=== PATIENT | female | born 1950 | race Caucasian/White ===

== ENCOUNTER → 2018-01-12 | Outpatient (CLI) | payer MEDICARE, OTHER ==
--- NOTE | 2018-01-12 21:55 | MR ---
EXAMINATION TYPE: MR knee RT wo con DATE OF EXAM: 01/12/2018 COMPARISON: NONE HISTORY: 67-year-old female pain on movement, tenderness on palpation, Signature planning knee replac ement study. TECHNIQUE: Multiplanar, multisequence imaging of the right knee is performed without IV contrast. FINDINGS: The technologist notes patient constantly moving, best possible sequences. Select sequences through the hips, right knee, and right ankle were obtained for surgical planning pu rposes. 3-D gradient sequence in the sagittal plane was acquired of the right knee. Images show a large knee joint effusion with underlying degenerative change most severe in the lateral compartment with end-st age appearance and moderate in the patellofemoral compartment. Prominent marginal spurring is present in the medial compartment. Limited assessment of the menisci though suspect a degenerative, torn, and extruded lateral meniscus. Extensor mechanism is intact. IMPRESSION: 1. Signature planning knee replacement study. Exam limitations as the patient was constantly moving. 2. End-stage lateral compartment osteoarthrosis. At least moderate patellofemoral compartment osteoar throsis. Prominent degenerative spurring in the medial compartment. 3. Suspect a degenerative, torn, and extruded lateral meniscus. 4. Limited assessment of the cruciate/collateral ligaments and additional structures due to only a sa gittal sequence acquired of the knee. 5. Large knee joint effusion.
== END | disposition home or self-care (01) ==
LOC: RADMRIMAIN 20:42
PROVIDERS: ATTEND Orthopaedic Surgery
DX: M17.11 Unilateral primary osteoarthritis, right knee (principal); M76.891 Other specified enthesopathies of right lower limb, excluding foot

== ENCOUNTER → 2019-03-14 | Outpatient (CLI) | payer MEDICARE, OTHER ==
--- NOTE | 2019-03-14 12:28 | FL ---
EXAMINATION TYPE: FL barium swallow w video DATE OF EXAM: 03/14/2019 MODIFIED SWALLOW / DEGLUTITION STUDY CLINICAL HISTORY: Pneumonitis due to aspiration. TECHNIQUE: Deglutition study is performed utilizing thin liquid barium, honey and nectar thick liqui d barium, barium thick applesauce, and barium coated cracker. Total of 1 minute 50 seconds of fluoros copic time was utilized during procedure. 0 spot images are saved to PACS. COMPARISON: None. FINDINGS: The oral and pharyngeal phases show some episodes of delayed initiation propagation with fr ee spilling with all modalities tested. Satisfactory mastication is seen with solid modalities tested . There is no evidence of penetration or aspiration with any modality tested. No significant pharyn geal residue was appreciated. IMPRESSION: No penetration or aspiration observed. Please refer to speech therapist notes for furthe r details if necessary.
== END | disposition home or self-care (01) ==
LOC: RADFLMAIN 11:23
DX: J69.0 Pneumonitis due to inhalation of food and vomit (principal)
CPT/HCPCS: 74230

== ENCOUNTER 2019-10-29 14:36 | Inpatient (IN) | payer MEDICARE, OTHER ==
[2019-10-29] MEDS ORDERED: SODIUM CHLORIDE 0.9% 1,000 ML IV SCH (19:00)
[2019-10-29] MEDS ORDERED: AMPICILLIN-SULBACTAM 1.5 GM in SODIUM CHLORIDE 0.9% 50 ML IVPB SCH (20:00)
[2019-10-29] MEDS: AMPICILLIN-SULBACTAM 3 GM in SODIUM CHLORIDE 0.9% 100 ML IVPB SCH (20:22)
[2019-10-29 21:15] LABS: Glucose,Whole Blood 98 mg/dL (75-99)
[2019-10-29] MEDS ORDERED: KETOROLAC 30 MG/ML 1 ML VIAL IVP PRN (22:48)
[2019-10-29] MEDS: FAMOTIDINE 20 MG/2 ML VIAL IV SCH (23:06)
[2019-10-29] MEDS: DEXTROSE 5%-0.9% NACL 1,000 ML IV SCH (23:06)
--- NOTE | 2019-10-29 23:50 | P.HPIM ---
History of Present Illness H&P Date: 10/29/19 Chief Complaint: Cough and fever Patient is a 69-year-old female with a known history of memory impairment, hyperlipidemia, GERD, rheumatoid arthritis, and other multiple medical problems initially presented to [facility] due to worsening cough and fever with T-max of 102.8. Patient had CT chest done at medical in the hospital showed right-sided significant pneumonia and left lower lobe pneumonia. Patient was given a dose of Unasyn. Due to multifocal pneumonia and sepsis patient was transferred to [facility] for further evaluation. Patient also has underlying comorbid conditions include. Patient does walk independently at baseline. 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 Patient is a poor historian and cannot provide any history. Laboratory data reviewed from [facility] and discussed with the physician at [facility]. WBC count 13.5. Hemoglobin within normal limits. Sodium potassium and renal function is stable. Patient has been having swallowing difficulty. Review of Systems Review of systems could not be obtained from the patient. Past Medical History Past Medical History: GERD/Reflux, Hyperlipidemia, Memory Impairment, Pneumonia, Rheumatoid Arthritis (RA) Additional Past Medical History / Comment(s): 02/08/16 Pt is a [facility] transfer with admitting diagnosis of pneumonia. Pt has also a transfer from [facility] on 01/14 for pnemonia. Pt is nonverbal and unable to participate in obtaining past medical history. 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 l WRIST SCREWS IN l THUMB, 6 THEETH REMOVED Past Anesthesia/Blood Transfusion Reactions: No Reported Reaction Past Psychological History: Anxiety, Depression Additional Psychological History / Comment(s): Psychotic disease. Pt resides at [facility]. She is profoundly mentally challenged. She walks without difficulty normally. She feeds herself but food must be chopped small and she will eat too fast. She is afraid of needles. and loud noise Smoking Status: Unknown if ever smoked Past Alcohol Use History: None Reported Past Drug Use History: None Reported - Past Family History Mother Family Medical History: Coronary Artery Disease (CAD) Additional Family Medical History / Comment(s): Mother is still living. Medications and Allergies Home Medications Medication Instructions Recorded Confirmed Type Docusate Sodium [Dok] 100 mg PO DAILY@0700,199901/15/16 10/29/19 History Omeprazole [PriLOSEC] 20 mg PO DAILY@0700,1600 01/15/16 10/29/19 History Polyethylene Glycol 3350 [Miralax] 17 gm PO HS@199901/15/16 10/29/19 History risperiDONE [RisperDAL] 0.5 mg PO BID@0700,199901/15/16 10/29/19 History Cetirizine HCl [Zyrtec] 10 mg PO HS@199912/06/17 10/29/19 History Linaclotide [Linzess] 145 mcg PO DAILY@1600 12/06/17 10/29/19 History Meloxicam [Mobic] 15 mg PO DAILY@0700 12/06/17 10/29/19 History Carbamide Peroxide [Debrox Otic] 3 - 5 drops BOTH EARS Q14D@199910/29/19 10/29/19 History FLUoxetine HCL [PROzac] 40 mg PO DAILY@0710/29/19 10/29/19 History Levothyroxine Sodium [Synthroid] 100 mcg PO AC-BRKFST@0530 10/29/19 10/29/19 History Ranitidine HCl [Zantac] 150 mg PO BID@0700,2000 10/29/19 10/29/19 History busPIRone HCL 15 mg PO BID@0700,1600 10/29/19 10/29/19 History busPIRone HCL 30 mg PO HS@199910/29/19 10/29/19 History Allergies Allergy/AdvReac Type Severity Reaction Status Date / Time laundry detergent Allergy Unknown Rash/Hives Uncoded 10/29/19 17:59 Physical Exam Vitals: Vital Signs Temp Pulse Resp BP Pulse Ox 10/29/19 21:10 97.8 F 71 16 107/64 96 10/29/19 17:32 97.8 F 68 18 115/62 90 L Intake and Output 10/29/19 10/29/19 10/30/19 14:59 22:59 06:59 Intake Total 400 Balance 400 Intake: Intake, IV Titration 400 Amount Ampicillin-Sulbactam 3 gm 100 In Sodium Chloride 0.9% 100 ml @ 200 mls/hr IVPB Q8H [facility] Rx#:[id number] Sodium Chloride 0.9% 1, 300 000 ml @ 75 mls/hr IV . [id number] [facility] Rx#:[id number] Other: Weight 67.6 kg PHYSICAL EXAMINATION: Patient is lying in the bed comfortably, no acute distress, awake alert and not oriented. Severe Memory impairment and mentally challenged.. HEENT: Normocephalic. Neck is supple. Pupils reactive. Nostrils clear. Oral cavity is moist. Ears reveal no drainage. Neck reveals no JVD, carotid bruits, or thyromegaly. CHEST EXAMINATION: Trachea is central. Symmetrical expansion. Bilateral coarse breath sounds and rhonchi. No wheezing.. CARDIAC: Normal S1, S2 with no gallops. No murmurs ABDOMEN: Soft. Bowel sounds normal. No organomegaly. No abdominal bruits. Extremities: reveal no edema. No clubbing or cyanosis Neurologically awake, alert but not oriented. Able to move her extremities while in the bed. No gross focal neurological deficits. Psychiatric: Coperative. could not be assessed. Mentally challenged. Musculoskeletal: No joint swelling or deformity. Normal range of motion. Thrombosis Risk Factor Assmnt - DVT/VTE Prophylaxis DVT/VTE Prophylaxis: Pharmacologic Prophylaxis ordered - Choose All That Apply Each Risk Factor Represents 2 Points: Age 61-74 years Thrombosis Risk Factor Assessment Total Risk Factor Score: 2 Thrombosis Risk Factor Assessment Level: Low Risk Assessment and Plan Assessment: Bilateral significant multifocal pneumonia. Possible aspiration pneumonia Mentally challenged and memory impairment. Swallowing difficulty. Barium swallow was ordered and speech swallow evaluation. GERD Hyperlipidemia Previous history of pneumonia History of psychosis Hypothyroidism Frequent constipation Anxiety/depression Osteoarthritis DVT prophylaxis Plan: Patient will be continued on antibiotics in the form of Unasyn. Oxygen therapy as needed. Follow up blood cultures. Patient will be kept nothing by mouth and continue with IV hydration. Recheck CBC and CMP tomorrow. Repeat chest x-ray tomorrow. Speech and swallow study. Pulmonary will be consulted for further evaluation. Prognosis is guarded with multiple medical problems and comorbid conditions. Time with Patient: Greater than 30
[2019-10-30 02:01] LABS: Glucose,Whole Blood 103 mg/dL (75-99)
[2019-10-30] MEDS: AMPICILLIN-SULBACTAM 3 GM in SODIUM CHLORIDE 0.9% 100 ML IVPB SCH ×3 (04:17→20:38)
[2019-10-30] MEDS: LEVOTHYROXINE 100 MCG TAB PO SCH (05:43)
[2019-10-30 07:02] LABS: Glucose,Whole Blood 96 mg/dL (75-99)
--- NOTE | 2019-10-30 07:05 | XR ---
EXAMINATION TYPE: XR chest 1V DATE OF EXAM: 10/30/2019 HISTORY: Pneumonia. REFERENCE: Previous study dated 12/09/2017. FINDINGS: The study is rotated. Heart size upper limits of normal. There is vascular congestion and m ild edema. IMPRESSION: WORSENING CHANGES OF PULMONARY EDEMA.
[2019-10-30 07:06] LABS: Basophils % (A) 0 %; Eosinophils # (A) 0.3 k/uL (0-0.7); Eosinophils % (A) 4 %; HCT 32.5 % (34.0-46.0); HGB 9.8 gm/dL (11.4-16.0); Hypochromasia Marked; Lymphocytes # (A) 1.1 k/uL (1.0-4.8); Lymphocytes % (A) 16 %; MCH 30.5 pg (25.0-35.0); MCHC 30.3 g/dL (31.0-37.0); MCV 100.6 fL (80.0-100.0); Mean Platelet Volume 7.7; Monocytes # (A) 0.3 k/uL (0-1.0); Monocytes % (A) 5 %; Neutrophils % (A) 72 %; Platelet Count 184 k/uL (150-450); RBC 3.23 m/uL (3.80-5.40); RDW 12.7 % (11.5-15.5); WBC 6.8 k/uL (3.8-10.6)
[2019-10-30 07:21] LABS: ALT 9 U/L (4-34); AST 27 U/L (14-36); African American GFR (CKD) >90 (>60 ml/min/1.73 sqM); Albumin 2.4 g/dL (3.5-5.0); Alkaline Phosphatase 54 U/L (38-126); Anion Gap 5 mmol/L; Blood Urea Nitrogen 14 mg/dL (7-17); Calcium 7.2 mg/dL (8.4-10.2); Carbon Dioxide 22 mmol/L (22-30); Chloride 116 mmol/L (98-107); Non-African American GFR(CKD) >90 (>60 ml/min/1.73 sqM); Potassium 3.7 mmol/L (3.5-5.1); Sodium 143 mmol/L (137-145); Total Bilirubin 0.4 mg/dL (0.2-1.3)
[2019-10-30 07:42] LABS: Glucose 553 mg/dL (74-99)
[2019-10-30 07:46] LABS: Glucose,Whole Blood 87 mg/dL (75-99)
[2019-10-30 10:00] VITALS: BMI 27.2
[2019-10-30] MEDS: FAMOTIDINE 20 MG/2 ML VIAL IV SCH ×2 (10:23→20:39)
[2019-10-30] MEDS: HEPARIN SODIUM,PORCINE 5,000 UNIT/ML 1 ML VIAL SQ SCH ×3 (10:23→15:35)
[2019-10-30 11:05] LABS: Glucose,Whole Blood 73 mg/dL (75-99)
--- NOTE | 2019-10-30 13:34 | P.CNPUL ---
History of Present Illness Consult date: 10/30/19 Reason for consult: pneumonia History of present illness: 69-year-old female patient got transferred from [facility] because of cough and fever with temperature 102.8. CAT scan of the chest showed a right sided pneumonia and left lower lobe pneumonia and the patient was started on Unasyn. She has dementia, RA, hyperlipidemia, GERD. She has been developmentally delayed also and unable to talk but understands. She is quite resistant to. She gets aggressive. He has a white cell count of 13.5. Hemoglobin is stable. Rest of the blood work is all stable. The white cell count today is at 6.8. Review of Systems Unable to obtain on this patient due to her significant mental challenge. she is currently on she has a legal guardian. Unable to get more history. Nevertheless,there is no reported history of aspiration Past Medical History Past Medical History: GERD/Reflux, Hyperlipidemia, Memory Impairment, Pneumonia, Rheumatoid Arthritis (RA) Additional Past Medical History / Comment(s): 02/08/16 Pt is a [facility] transfer with admitting diagnosis of pneumonia. Pt has also a transfer from [facility] on 01/14 for pnemonia. Pt is nonverbal and unable to participate in obtaining past medical history. 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 l WRIST SCREWS IN l THUMB, 6 THEETH REMOVED Past Anesthesia/Blood Transfusion Reactions: No Reported Reaction Past Psychological History: Anxiety, Depression Additional Psychological History / Comment(s): Psychotic disease. Pt resides at [facility]. She is profoundly mentally challenged. She walks without difficulty normally. She feeds herself but food must be chopped small and she will eat too fast. She is afraid of needles. and loud noise Smoking Status: Unknown if ever smoked Past Alcohol Use History: None Reported Past Drug Use History: None Reported - Past Family History Mother Family Medical History: Coronary Artery Disease (CAD) Additional Family Medical History / Comment(s): Mother is still living. Medications and Allergies Home Medications Medication Instructions Recorded Confirmed Type Docusate Sodium [Dok] 100 mg PO DAILY@0700,199901/15/16 10/29/19 History Omeprazole [PriLOSEC] 20 mg PO DAILY@0700,1600 01/15/16 10/29/19 History Polyethylene Glycol 3350 [Miralax] 17 gm PO HS@199901/15/16 10/29/19 History risperiDONE [RisperDAL] 0.5 mg PO BID@0700,199901/15/16 10/29/19 History Cetirizine HCl [Zyrtec] 10 mg PO HS@199912/06/17 10/29/19 History Linaclotide [Linzess] 145 mcg PO DAILY@1600 12/06/17 10/29/19 History Meloxicam [Mobic] 15 mg PO DAILY@0700 12/06/17 10/29/19 History Carbamide Peroxide [Debrox Otic] 3 - 5 drops BOTH EARS Q14D@199910/29/19 10/29/19 History FLUoxetine HCL [PROzac] 40 mg PO DAILY@0700 10/29/19 10/29/19 History Levothyroxine Sodium [Synthroid] 100 mcg PO AC-BRKFST@0530 10/29/19 10/29/19 History Ranitidine HCl [Zantac] 150 mg PO BID@0700,199910/29/19 10/29/19 History busPIRone HCL 15 mg PO BID@0700,1600 10/29/19 10/29/19 History busPIRone HCL 30 mg PO HS@199910/29/19 10/29/19 History Allergies Allergy/AdvReac Type Severity Reaction Status Date / Time laundry detergent Allergy Unknown Rash/Hives Uncoded 10/29/19 17:59 Physical Exam Vitals: Vital Signs Temp Pulse Resp BP Pulse Ox 10/30/19 11:33 97.3 F L 62 20 133/63 100 10/30/19 04:15 97.7 F 59 L 16 125/77 92 L 10/29/19 21:10 97.8 F 71 16 107/64 96 10/29/19 17:32 97.8 F 68 18 115/62 90 L Intake and Output 10/29/19 10/30/19 10/30/19 22:59 06:59 14:59 Intake Total 400 Balance 400 Intake: Intake, IV Titration 400 Amount Ampicillin-Sulbactam 3 gm 100 In Sodium Chloride 0.9% 100 ml @ 200 mls/hr IVPB Q8H [facility] Rx#:[id number] Sodium Chloride 0.9% 1, 300 000 ml @ 75 mls/hr IV . [id number] [facility] Rx#:[id number] Other: Voiding Method Diaper Diaper Incontinent Incontinent # Voids 1 3 # Bowel Movements 0 Weight 67.6 kg 67.6 kg GENERAL EXAM: Alert, active, comfortable in no apparent distress. HEAD: Normocephalic. EYES: Normal reaction of pupils, equal size. NOSE: Clear with pink turbinates. THROAT: No erythema or exudates. NECK: No masses, no JVD. CHEST: No chest wall deformity. LUNGS: Equal air entry with no wheeze, crackles or dullness. Few scattered rhonchi more so on the right lung base. CVS: S1 and S2 normal with no audible murmurs, regular rhythm. ABDOMEN: No hepatosplenomegaly, normal bowel sounds, no guarding or rigidity. SPINE: No scoliosis or deformity SKIN: No rashes CENTRAL NERVOUS SYSTEM: No focal deficits, tone is normal in all 4 extremities. Extremities: There is no significant peripheral edema. No clubbing, no cyanosis. Peripheral pulses are intact. Results - Laboratory Findings CBC and BMP: 10/30/19 06:29 10/30/19 08:12 Abnormal lab findings: Abnormal Labs 10/30/19 10/30/19 10/30/19 02:00 06:29 06:29 RBC 3.23 L Hgb 9.8 L Hct 32.5 L MCV 100.6 H MCHC 30.3 L Chloride 116 H Glucose 553 H* POC Glucose (mg/dL) 103 H Calcium 7.2 L Total Protein 5.0 L Albumin 2.4 L 10/30/19 11:02 RBC Hgb Hct MCV MCHC Chloride Glucose POC Glucose (mg/dL) 73 L Calcium Total Protein Albumin - Diagnostic Findings Chest x-ray: image reviewed Assessment and Plan Plan: 1 bilateral pneumonia, consider aspiration taken counts are neurologic circumstances. A swallow evaluation will be done. Currently on IV Unasyn. 2 acute hypoxic respiratory failure secondary to above 3 mentally challenged 4 previous bouts of pneumonias 5 hypothyroidism 6 history of constipation Plan Aspiration precautions Swallow evaluation Albuterol neb [id number] IV fluids with D5 at the rate of 130s an hour okay to give oral pills and medication reconsultation is to be done Oxygen at 2 L Repeat chest x-ray in the morning We'll continue to follow
[2019-10-30 17:22] LABS: Glucose,Whole Blood 68 mg/dL (75-99)
[2019-10-30] MEDS: DEXTROSE 5%-0.9% NACL 1,000 ML IV SCH (20:38)
[2019-10-30 20:41] LABS: Glucose,Whole Blood 70 mg/dL (75-99)
[2019-10-31] MEDS: HEPARIN SODIUM,PORCINE 5,000 UNIT/ML 1 ML VIAL SQ SCH ×3 (00:07→17:20)
[2019-10-31 01:34] LABS: Glucose,Whole Blood 82 mg/dL (75-99)
[2019-10-31] MEDS: AMPICILLIN-SULBACTAM 3 GM in SODIUM CHLORIDE 0.9% 100 ML IVPB SCH ×3 (03:47→20:26)
[2019-10-31] MEDS: LEVOTHYROXINE 100 MCG TAB PO SCH (05:47)
[2019-10-31 06:59] LABS: Glucose,Whole Blood 70 mg/dL (75-99)
--- NOTE | 2019-10-31 07:16 | XR ---
EXAMINATION TYPE: XR chest 2V DATE OF EXAM: 10/31/2019 COMPARISON: 10/30/2019 HISTORY: 69 year-old female follow-up pneumonia TECHNIQUE: Frontal and lateral views FINDINGS: Low lung volumes with crowded vascular markings. Continued diffuse interstitial changes. Some migrato ry opacity is now more confluent airspace opacity at the right mid lung. Small effusions on the later al view. IMPRESSION: Hypoventilatory changes. Suspect continued underlying interstitial pulmonary edema. Either pneumonia versus confluent edema at the right midlung.
[2019-10-31] MEDS: FAMOTIDINE 20 MG/2 ML VIAL IV SCH (10:38)
--- NOTE | 2019-10-31 11:17 | P.PN ---
Subjective Progress Note Date: 10/31/19 Principal diagnosis: Bilateral pneumonia, acute hypoxic respiratory failure 69-year-old female patient got transferred from [facility] because of cough and fever with temperature 102.8. CAT scan of the chest showed a right sided pneumonia and left lower lobe pneumonia and the patient was started on Unasyn. She has dementia, RA, hyperlipidemia, GERD. She has been deve lopmentally delayed also and unable to talk but understands. She is quite resistant to. She gets aggressive. He has a white cell count of 13.5. Hemoglobin is stable. Rest of the blood work is all stable. The white cell count today is at 6.8. On 10/31/2017 patient seen in follow-up on medical surgical floor. She is quite awake and alert today, she is nonverbal, but she follows simple commands, cooperative, seems to be in no acute distress, she is on room air pulse ox is 93%, afebrile, hemodynamically stable, no signs of any respiratory difficulty, no rhonchi, no wheezing, some bibasilar crackles, patient has passed a bedside speech evaluation. Patient is on the ground diet with nectar thick liquids. No new labs today, remains on Unasyn for antibiotic coverage, she's had no fever or chills overnight, clinically stable Objective - Vital Signs Vital signs: Vital Signs Temp 98.1 F 10/31/19 04:00 Pulse 59 L 10/31/19 04:00 Resp 16 10/31/19 04:00 BP 120/77 10/31/19 04:00 Pulse Ox 93 L 10/31/19 04:00 Intake & Output 10/30/19 10/31/19 10/31/19 18:59 06:59 18:59 Intake Total 150 Balance 150 Weight 67.6 kg Intake: Intake, IV Titration 150 Amount Dextrose 5%-0.9% NaCl 1, 150 000 ml @ 50 mls/hr IV . Q20H [facility] Rx#:[id number] Other: Voiding Method Diaper Diaper Incontinent Incontinent # Voids 3 4 # Bowel Movements 0 - Exam GENERAL EXAM: Alert, pleasant and cooperative, nonverbal, 69-year-old white female, with a baseline cognitive impairment, able to follow simple commands comfortable in no apparent distress. HEAD: Normocephalic/atraumatic. EYES: Normal reaction of pupils, equal size. Conjunctiva pink, sclera white. NOSE: Clear with pink turbinates. THROAT: No erythema or exudates. NECK: No masses, no JVD, no thyroid enlargement, no adenopathy. CHEST: No chest wall deformity. Symmetrical expansion. LUNGS: Equal air entry with limited basilar crackles, but no wheeze, rhonchi or dullness. CVS: Regular rate and rhythm, normal S1 and S2, no gallops, no murmurs, no rubs ABDOMEN: Soft, nontender. No hepatosplenomegaly, normal bowel sounds, no guarding or rigidity. EXTREMITIES: No clubbing, no edema, no cyanosis, 2+ pulses and upper and lower extremities. MUSCULOSKELETAL: Muscle strength and tone normal. SPINE: No scoliosis or deformity SKIN: No rashes CENTRAL NERVOUS SYSTEM: Alert and oriented -1. No focal deficits, tone is normal in all 4 extremities. PSYCHIATRIC: Alert and oriented -1. Appropriate affect. Intact judgment and insight. - Labs CBC & Chem 7: 10/30/19 06:29 10/30/19 08:12 Labs: Abnormal Lab Results - Last 24 Hours (Table) 10/30/19 10/30/19 10/31/19 Range/Units 17:16 20:20 06:57 POC Glucose (mg/dL) 68 L 70 L 70 L (75-99) mg/dL Assessment and Plan Plan: Assessment: #1. Acute hypoxic respiratory failure related to bilateral pneumonia possibly related to aspiration #2. History of cognitive impairment #3. Previous episodes of pneumonia #4. Hypothyroidism #5. Chronic constipation #6. GERD/reflux #7. Rheumatoid arthritis #8. Anxiety Plan: Continue current antibiotics, patient is clinically stable, no fever or chills, seems quite comfortable this morning, no evidence of respiratory difficulty, she has passed bedside swallow evaluation, maintain aspiration precautions, ground diet with nectar thick liquids was recommended. Today's chest x-ray shows hypoventilatory changes, possible interstitial pulmonary edema, unable to look at films this morning, clinically patient appears to be stable. I performed a history & physical examination of the patient and discussed their management with my nurse practitioner, Maria Raymond. I reviewed the nurse practitioner's note and agree with the documented findings and plan of care. Lung sounds are positive for basilar crackles. The findings and the impression was discussed with the patient. I attest to the documentation by the nurse practitioner. Time with Patient: Less than 30
[2019-10-31 12:00] LABS: Glucose,Whole Blood 113 mg/dL (75-99)
[2019-10-31] MEDS: DEXTROSE 5%-0.9% NACL 1,000 ML IV SCH ×2 (15:24→17:20)
[2019-10-31 17:13] LABS: Glucose,Whole Blood 106 mg/dL (75-99)
[2019-10-31] MEDS: Linaclotide [Linzess] 145 MCG PO SCH (17:13)
[2019-10-31] MEDS: busPIRone HCl 5 MG TAB PO SCH (17:19)
[2019-10-31] MEDS ORDERED: POLYETHYLENE GLYCOL 3350 17 GM POWD.PACK PO SCH (20:00)
[2019-10-31] MEDS ORDERED: LORATADINE 10 MG TAB PO SCH (20:00)
[2019-10-31] MEDS ORDERED: busPIRone HCl 10 MG TAB PO SCH (20:00)
[2019-10-31 20:08] LABS: Glucose,Whole Blood 145 mg/dL (75-99)
[2019-10-31] MEDS: risperiDONE 0.5 MG TAB PO SCH (20:27)
[2019-10-31] MEDS: FAMOTIDINE 20 MG TAB PO SCH (20:27)
[2019-10-31] MEDS: DOCUSATE 100 MG CAP PO SCH (20:27)
--- NOTE | 2019-10-31 22:09 | P.PN ---
Subjective Progress Note Date: 10/30/19 Principal diagnosis: bilateral pneumonia possible aspiration Patient is a 69-year-old female with a known history of memory impairment, hyperlipidemia, GERD, rheumatoid arthritis, and other multiple medical problems initially presented to [facility] from alf due to worsening cough and fever with T-max of 102.8. Patient had CT chest done at medical in the hospital showed right-sided significant pneumonia and left lower lobe pneumonia. Patient was given a dose of Unasyn. Due to multifocal pneumonia and sepsis patient was transferred to [facility] for further evaluation. Patient also has underlying comorbid conditions include. Patient does walk independently at baseline. 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 Patient is a poor historian and cannot provide any history. Laboratory data reviewed from [facility] and discussed with the physician at [facility]. WBC count 13.5. Hemoglobin within normal limits. Sodium potassium and renal function is stable. Patient has been having swallowing difficulty. 10/30/2019 Patient cannot provide any history underlying mental status. Currently saturating well on nasal cannula oxygen. currently patient is being continued oniV hydration. Nothing by mouth pending swallow evaluation tomorrow. Continued on antibiotics in the form ofUnasyn. Pulmonary is following. Patient has been afebrile. current medications reviewed. Objective - Vital Signs Vital signs: Vital Signs Temp 98.2 F 10/30/19 20:30 Pulse 65 10/30/19 20:30 Resp 12 10/30/19 20:30 BP 126/70 10/30/19 20:30 Pulse Ox 92 L 10/30/19 20:30 Intake & Output 10/30/19 10/30/19 10/31/19 06:59 18:59 06:59 Intake Total 400 Balance 400 Weight 67.6 kg Intake: Intake, IV Titration 400 Amount Ampicillin-Sulbactam 3 gm 100 In Sodium Chloride 0.9% 100 ml @ 200 mls/hr IVPB Q8H [facility]ENDING [facility] Rx#:[id number] Sodium Chloride 0.9% 1, 300 000 ml @ 75 mls/hr IV . [id number] [facility]ENDING [facility] TO [facility] Rx#:[id number] Other: Voiding Method Diaper Diaper Incontinent Incontinent # Voids 1 3 # Bowel Movements 0 - Exam PHYSICAL EXAMINATION: Patient is lying in the bed comfortably, no acute distress, awake alert and not oriented. Severe Memory impairment and mentally challenged.. HEENT: Normocephalic. Neck is supple. Pupils reactive. Nostrils clear. Oral cavity is moist. Ears reveal no drainage. Neck reveals no JVD, carotid bruits, or thyromegaly. CHEST EXAMINATION: Trachea is central. Symmetrical expansion. Bilateral coarse breath sounds and rhonchi. No wheezing.. CARDIAC: Normal S1, S2 with no gallops. No murmurs ABDOMEN: Soft. Bowel sounds normal. No organomegaly. No abdominal bruits. Extremities: reveal no edema. No clubbing or cyanosis Neurologically awake, alert but not oriented. Able to move her extremities while in the bed. No gross focal neurological deficits. Psychiatric: Coperative. could not be assessed. Mentally challenged. Musculoskeletal: No joint swelling or deformity. Normal range of motion. - Labs CBC & Chem 7: 10/30/19 06:29 10/30/19 08:12 Labs: Abnormal Lab Results - Last 24 Hours (Table) 10/30/19 10/30/19 10/30/19 Range/Units 02:00 06:29 06:29 RBC 3.23 L (3.80-5.40) m/uL Hgb 9.8 L (11.4-16.0) gm/dL Hct 32.5 L (34.0-46.0) % MCV 100.6 H (80.0-100.0) fL MCHC 30.3 L (31.0-37.0) g/dL Chloride 116 H (98-107) mmol/L Glucose 553 H* (74-99) mg/dL POC Glucose (mg/dL) 103 H (75-99) mg/dL Calcium 7.2 L (8.4-10.2) mg/dL Total Protein 5.0 L (6.3-8.2) g/dL Albumin 2.4 L (3.5-5.0) g/dL 10/30/19 10/30/19 10/30/19 Range/Units 11:02 17:16 20:20 RBC (3.80-5.40) m/uL Hgb (11.4-16.0) gm/dL Hct (34.0-46.0) % MCV (80.0-100.0) fL MCHC (31.0-37.0) g/dL Chloride (98-107) mmol/L Glucose (74-99) mg/dL POC Glucose (mg/dL) 73 L 68 L 70 L (75-99) mg/dL Calcium (8.4-10.2) mg/dL Total Protein (6.3-8.2) g/dL Albumin (3.5-5.0) g/dL Assessment and Plan Assessment: Bilateral significant multifocal pneumonia. Possible aspiration pneumonia Mentally challenged and memory impairment. Swallowing difficulty. Barium swallow was ordered and speech swallow evaluation. GERD Hyperlipidemia Previous history of pneumonia History of psychosis Hypothyroidism Frequent constipation Anxiety/depression Osteoarthritis DVT prophylaxis Plan: Patient will be continued on antibiotics in the form of Unasyn. Oxygen therapy as needed. Follow up blood cultures. Patient will be kept nothing by mouth and continue with IV hydration. Recheck CBC and CMP tomorrow. Speech and swallow study. Pulmonary will be consulted for further evaluation. Prognosis is guarded with multiple medical problems and comorbid conditions. Time with Patient: Greater than 30
--- NOTE | 2019-10-31 22:13 | P.PN ---
Subjective Progress Note Date: 10/31/19 Principal diagnosis: bilateral pneumonia possible aspiration Patient is a 69-year-old female with a known history of memory impairment, hyperlipidemia, GERD, rheumatoid arthritis, and other multiple medical problems initially presented to [facility] from long term due to worsening cough and fever with T-max of 102.8. Patient had CT chest done at medical in the hospital showed right-sided significant pneumonia and left lower lobe pneumonia. Patient was given a dose of Unasyn. Due to multifocal pneumonia and sepsis patient was transferred to [facility] for further evaluation. Patient also has underlying comorbid conditions include. Patient does walk independently at baseline. 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 Patient is a poor historian and cannot provide any history. Laboratory data reviewed from [facility] and discussed with the physician at [facility]. WBC count 13.5. Hemoglobin within normal limits. Sodium potassium and renal function is stable. Patient has been having swallowing difficulty. 10/30/2019 Patient cannot provide any history underlying mental status. Currently saturating well on nasal cannula oxygen. currently patient is being continued oniV hydration. Nothing by mouth pending swallow evaluation tomorrow. Continued on antibiotics in the form ofUnasyn. Pulmonary is following. Patient has been afebrile. 10/31/2019 Patient was currently lying in the bed comfort Chest x-ray showedhypoventilation changes. Suspect continued underlying interstitial pulmonary edema . He is stillversus confluent edema.discontinued IV hydration. patient is able to pass swallow evaluation. Started onhighly thicke liquids. Afebrile. Currently on antibiotics in the form ofUnasyn. Pulmonary is following.anticipate discharge in the next 24 hours. current medications reviewed. Objective - Vital Signs Vital signs: Vital Signs Temp 97.5 F L 10/31/19 21:00 Pulse 68 10/31/19 21:00 Resp 18 10/31/19 21:00 BP 144/72 10/31/19 21:00 Pulse Ox 93 L 10/31/19 21:00 Intake & Output 10/31/19 10/31/19 11/01/19 06:59 18:59 06:59 Intake Total 150 400 Balance 150 400 Intake: Intake, IV Titration 150 400 Amount Dextrose 5%-0.9% NaCl 1, 150 400 000 ml @ 50 mls/hr IV . Q20H [facility] Rx#:[id number] Other: Voiding Method Diaper Diaper Incontinent Incontinent # Voids 4 3 # Bowel Movements 0 - Exam PHYSICAL EXAMINATION: Patient is lying in the bed comfortably, no acute distress, awake alert and not oriented. Severe Memory impairment and mentally challenged.. HEENT: Normocephalic. Neck is supple. Pupils reactive. Nostrils clear. Oral cavity is moist. Ears reveal no drainage. Neck reveals no JVD, carotid bruits, or thyromegaly. CHEST EXAMINATION: Trachea is central. Symmetrical expansion. Bilateral coarse breath sounds and rhonchi. No wheezing.. CARDIAC: Normal S1, S2 with no gallops. No murmurs ABDOMEN: Soft. Bowel sounds normal. No organomegaly. No abdominal bruits. Extremities: reveal no edema. No clubbing or cyanosis Neurologically awake, alert but not oriented. Able to move her extremities while in the bed. No gross focal neurological deficits. Psychiatric: Coperative. could not be assessed. Mentally challenged. Musculoskeletal: No joint swelling or deformity. Normal range of motion. - Labs CBC & Chem 7: 10/30/19 06:29 10/30/19 08:12 Labs: Abnormal Lab Results - Last 24 Hours (Table) 10/31/19 10/31/19 10/31/19 Range/Units 06:57 11:58 17:12 POC Glucose (mg/dL) 70 L 113 H 106 H (75-99) mg/dL 10/31/19 Range/Units 20:06 POC Glucose (mg/dL) 145 H (75-99) mg/dL Assessment and Plan Assessment: Bilateral significant multifocal pneumonia. Possible aspiration pneumonia Mentally challenged and memory impairment. Swallowing difficulty. Barium swallow was ordered and speech swallow evaluation. GERD Hyperlipidemia Previous history of pneumonia History of psychosis Hypothyroidism Frequent constipation Anxiety/depression Osteoarthritis DVT prophylaxis Plan: Patient will be continued on antibiotics in the form of Unasyn. Oxygen therapy as needed. Follow up blood cultures. Patient will be kept nothing by mouth and continue with IV hydration. Recheck CBC and CMP tomorrow. Speech and swallow study. Pulmonary will be consulted for further evaluation. Prognosis is guarded with multiple medical problems and comorbid conditions. Time with Patient: Greater than 30
[2019-10-31] MEDS ORDERED: FUROSEMIDE 10 MG/ML 2 ML VIAL IV ONE (22:30)
[2019-11-01] MEDS: HEPARIN SODIUM,PORCINE 5,000 UNIT/ML 1 ML VIAL SQ SCH ×3 (00:09→16:23)
[2019-11-01 01:30] LABS: Glucose,Whole Blood 134 mg/dL (75-99)
[2019-11-01] MEDS: AMPICILLIN-SULBACTAM 3 GM in SODIUM CHLORIDE 0.9% 100 ML IVPB SCH ×2 (03:54→12:41)
[2019-11-01] MEDS: LEVOTHYROXINE 100 MCG TAB PO SCH (05:10)
[2019-11-01] MEDS ORDERED: FLUoxetine HCL 20 MG CAP PO SCH (07:00)
[2019-11-01 07:15] LABS: Glucose,Whole Blood 89 mg/dL (75-99)
[2019-11-01 07:55] LABS: Basophils % (A) 0 %; Eosinophils # (A) 0.4 k/uL (0-0.7); Eosinophils % (A) 7 %; HCT 35.3 % (34.0-46.0); HGB 11.5 gm/dL (11.4-16.0); Lymphocytes # (A) 1.5 k/uL (1.0-4.8); Lymphocytes % (A) 27 %; MCH 30.4 pg (25.0-35.0); MCHC 32.5 g/dL (31.0-37.0); Mean Platelet Volume 7.3; Monocytes # (A) 0.4 k/uL (0-1.0); Monocytes % (A) 7 %; Neutrophils # (A) 3.1 k/uL (1.3-7.7); Neutrophils % (A) 56 %; Platelet Count 244 k/uL (150-450); RBC 3.78 m/uL (3.80-5.40); RDW 12.6 % (11.5-15.5); WBC 5.5 k/uL (3.8-10.6)
[2019-11-01 08:00] LABS: MCV 93.4 fL (80.0-100.0)
[2019-11-01 08:11] LABS: African American GFR (CKD) >90 (>60 ml/min/1.73 sqM); Anion Gap 7 mmol/L; Blood Urea Nitrogen 9 mg/dL (7-17); Calcium 8.7 mg/dL (8.4-10.2); Carbon Dioxide 28 mmol/L (22-30); Chloride 106 mmol/L (98-107); Glucose 87 mg/dL (74-99); Non-African American GFR(CKD) 86 (>60 ml/min/1.73 sqM); Potassium 3.7 mmol/L (3.5-5.1); Sodium 141 mmol/L (137-145)
[2019-11-01] MEDS: risperiDONE 0.5 MG TAB PO SCH (09:20)
[2019-11-01] MEDS: busPIRone HCl 5 MG TAB PO SCH ×2 (09:21→16:23)
[2019-11-01] MEDS: FAMOTIDINE 20 MG TAB PO SCH (09:27)
[2019-11-01] MEDS: DOCUSATE 100 MG CAP PO SCH (09:27)
[2019-11-01 11:50] LABS: Glucose,Whole Blood 84 mg/dL (75-99)
--- NOTE | 2019-11-01 12:32 | P.PN ---
Subjective Progress Note Date: 11/01/19 Principal diagnosis: Acute hypoxic respiratory failure secondary to bilateral pneumonia. 69-year-old female patient got transferred from [facility] because of cough and fever with temperature 102.8. CAT scan of the chest showed a right sided pneumonia and left lower lobe pneumonia and the patient was started on Unasyn. She has dementia, RA, hyperlipidemia, GERD. She has been developmentally delayed also and unable to talk but understands. She is quite resistant to. She gets aggressive. He has a white cell count of 13.5. Hemoglobin is stable. Rest of the blood work is all stable. The white cell count today is at 6.8. On 10/31/2017 patient seen in follow-up on medical surgical floor. She is quite awake and alert today, she is nonverbal, but she follows simple commands, cooperative, seems to be in no acute distress, she is on room air pulse ox is 93 %, afebrile, hemodynamically stable, no signs of any respiratory difficulty, no rhonchi, no wheezing, some bibasilar crackles, patient has passed a bedside speech evaluation. Patient is on the ground diet with nectar thick liquids. No new labs today, remains on Unasyn for antibiotic coverage, she's had no fever or chills overnight, clinically stable. Somewhat nonverbal.The patient is seen today 11/01/2019 in follow-up on the regular medical floor. She is currently resting in bed. Awake and alert in no acute distress. Maintaining O2 saturations in the low 90s on room air. She's been afebrile. Hemodynamically stable. White count 5.5. Hemoglobin 11.5. Creatinine 0.72. Maintained on Unasyn. Objective - Vital Signs Vital signs: Vital Signs Temp 97.5 F L 11/01/19 04:29 Pulse 56 L 11/01/19 04:29 Resp 18 11/01/19 04:29 BP 133/81 11/01/19 04:29 Pulse Ox 92 L 11/01/19 04:29 Intake & Output 10/31/19 11/01/19 11/01/19 18:59 06:59 18:59 Intake Total 400 650 Balance 400 650 Intake: Intake, IV Titration 400 650 Amount Ampicillin-Sulbactam 3 gm 100 In Sodium Chloride 0.9% 100 ml @ 200 mls/hr IVPB Q8H [facility] Rx#:[id number] Dextrose 5%-0.9% NaCl 1, 400 550 000 ml @ 50 mls/hr IV . Q20H [facility] Rx#:[id number] Other: Voiding Method Diaper Diaper Diaper Incontinent Incontinent Incontinent # Voids 3 - Exam GENERAL EXAM: Alert, pleasant, nonverbal, 69-year-old female patient, with a baseline cognitive impairment, able to follow simple commands comfortable in no apparent distress. On room air HEAD: Normocephalic/atraumatic. EYES: Normal reaction of pupils, equal size. Conjunctiva pink, sclera white. NOSE: Clear with pink turbinates. THROAT: No erythema or exudates. Poor dentition. NECK: No masses, no JVD, no thyroid enlargement, no adenopathy. CHEST: No chest wall deformity. Symmetrical expansion. LUNGS: Equal air entry with limited basilar crackles, but no wheeze, rhonchi or dullness. CVS: Regular rate and rhythm, normal S1 and S2, no gallops, no murmurs, no rubs ABDOMEN: Soft, nontender. No hepatosplenomegaly, normal bowel sounds, no guarding or rigidity. EXTREMITIES: No clubbing, no edema, no cyanosis, 2+ pulses and upper and lower extremities. MUSCULOSKELETAL: Muscle strength and tone normal. SPINE: No scoliosis or deformity SKIN: No rashes CENTRAL NERVOUS SYSTEM: No focal deficits, tone is normal in all 4 extremities. PSYCHIATRIC: Alert and oriented -1. Appropriate affect. Intact judgment and insight. - Labs CBC & Chem 7: 11/01/19 07:18 11/01/19 07:18 Labs: Abnormal Lab Results - Last 24 Hours (Table) 10/31/19 10/31/19 11/01/19 Range/Units 17:12 20:06 01:28 RBC (3.80-5.40) m/uL POC Glucose (mg/dL) 106 H 145 H 134 H (75-99) mg/dL 11/01/19 Range/Units 07:18 RBC 3.78 L (3.80-5.40) m/uL POC Glucose (mg/dL) (75-99) mg/dL Assessment and Plan Assessment: #1. Acute hypoxic respiratory failure related to bilateral pneumonia possibly related to aspiration #2. History of cognitive impairment #3. Previous episodes of pneumonia #4. Hypothyroidism #5. Chronic constipation #6. GERD/reflux #7. Rheumatoid arthritis #8. Anxiety Plan: the patient was seen and evaluated by Dr. Simmons. She is currently stable from the pulmonary standpoint. Continue with the current treatment plan. Maintain aspiration precautions. Diet per swallow eval. I, the cosigning physician, performed a history & physical examination of the patient. Lungs sounds with crackles in the posterior bases. Maintaining good O2 saturations in the 90s on room air. I discussed the assessment and plan of care with my nurse practitioner, Marli Bryant. I attest to the above note as dictated by her.
[2019-11-01 12:42] VITALS: BP 133/87; PULSE 65; RESP 17; TEMP 96.3
[2019-11-01] MEDS: Linaclotide [Linzess] 145 MCG PO SCH (16:14)
--- NOTE | 2019-11-01 17:42 | P.DS ---
Providers Date of admission: 10/29/19 17:03 Expected date of discharge: 11/01/19 Attending physician: Fatmata Middleton Consults: 10/29/19 18:25 Consult Physician Routine Consulting Provider: Eula Man Consult Reason/Comments: SOB Do you want consulting provider notified?: Yes Primary care physician: Stated None Hospital Course: Acute hypoxic respiratory failure secondary to bilateral pneumonia. 69-year-old female patient got transferred from [facility] because of cough and fever with temperature 102.8. CAT scan of the chest showed a right sided pneumonia and left lower lobe pneumonia and the patient was started on Unasyn. She has dementia, RA, hyperlipidemia, GERD. She has been developmentally delayed also and unable to talk but understands. She is quite resistant to. She gets aggressive. He has a white cell count of 13.5. Hemoglobin is stable. Rest of the blood work is all stable. The white cell count today is at 6.8. On 10/31/2017 patient seen in follow-up on medical surgical floor. She is quite awake and alert today, she is nonverbal, but she follows simple commands, cooperative, seems to be in no acute distress, she is on room air pulse ox is 93%, afebrile, hemodynamically stable, no signs of any respiratory difficulty, no rhonchi, no wheezing, some bibasilar crackles, patient has passed a bedside speech evaluation. Patient is on the ground diet with nectar thick liquids. No new labs today, remains on Unasyn for antibiotic coverage, she's had no fever or chills overnight, clinically stable. Somewhat nonverbal.The patient is seen today 11/01/2019 in follow-up on the regular medical floor. She is currently resting in bed. Awake and alert in no acute distress. Maintaining O2 saturations in the low 90s on room air. She's been afebrile. Hemodynamically stable. White count 5.5. Hemoglobin 11.5. Creatinine 0.72. Maintained on Unasyn. Plan - Discharge Summary New Discharge Prescriptions: New Amoxicillin/Potassium Clav [Augmentin 875-125 Tablet] 1 tab PO Q12HR #6 tab Continue Polyethylene Glycol 3350 [Miralax] 17 gm PO HS@1999 risperiDONE [RisperDAL] 0.5 mg PO BID@0700,1999 Omeprazole [PriLOSEC] 20 mg PO DAILY@0700,1600 Docusate Sodium [Dok] 100 mg PO DAILY@07,1999 Meloxicam [Mobic] 15 mg PO DAILY@0700 Cetirizine HCl [Zyrtec] 10 mg PO HS@1999 Linaclotide [Linzess] 145 mcg PO DAILY@1600 Levothyroxine Sodium [Synthroid] 100 mcg PO AC-BRKFST@0530 FLUoxetine HCL [PROzac] 40 mg PO DAILY@0700 busPIRone HCL 30 mg PO HS@1999 busPIRone HCL 15 mg PO BID@0700,1600 Discontinued Ranitidine HCl [Zantac] 150 mg PO BID@699,1999 Carbamide Peroxide [Debrox Otic] 3 - 5 drops BOTH EARS Q14D@1999 Discharge Medication List Docusate Sodium [Dok] 100 mg PO DAILY@0700,199901/15/16 [History] Omeprazole [PriLOSEC] 20 mg PO DAILY@0700,1600 01/15/16 [History] Polyethylene Glycol 3350 [Miralax] 17 gm PO HS@199901/15/16 [History] risperiDONE [RisperDAL] 0.5 mg PO BID@0700,199901/15/16 [History] Cetirizine HCl [Zyrtec] 10 mg PO HS@199912/06/17 [History] Linaclotide [Linzess] 145 mcg PO DAILY@1600 12/06/17 [History] Meloxicam [Mobic] 15 mg PO DAILY@0700 12/06/17 [History] FLUoxetine HCL [PROzac] 40 mg PO DAILY@0700 10/29/19 [History] Levothyroxine Sodium [Synthroid] 100 mcg PO AC-BRKFST@0530 10/29/19 [History] busPIRone HCL 15 mg PO BID@0700,1600 10/29/19 [History] busPIRone HCL 30 mg PO HS@199910/29/19 [History] Amoxicillin/Potassium Clav [Augmentin 875-125 Tablet] 1 tab PO Q12HR #6 tab 10/31/19 [Rx] Patient Instructions/Handouts: Amoxicillin/Clavulanate Potassium (By mouth), Aspiration Pneumonia (DC), Pneumonia (DC) Activity/Diet/Wound Care/Special Instructions: Aspiration precautions-patient to be sitting straight up. Ground Diet - [place] thick liquids---small bites, liquids from spoon, NO straws. Crush meds in apple sauce. Discharge Disposition: TRANSFER TO SNF/ECF
== END 2019-11-01 17:17 | DRG 871 ==
LOC: 5NMEDONC 17:03
PROVIDERS: ADMIT Internal Medicine; ATTEND Internal Medicine
DX: A41.9 Sepsis, unspecified organism (principal); J69.0 Pneumonitis due to inhalation of food and vomit; J96.01 Acute respiratory failure with hypoxia; E03.9 Hypothyroidism, unspecified; E78.5 Hyperlipidemia, unspecified; F03.90 Unspecified dementia, unspecified severity, without behavioral disturbance, psychotic disturbance, mood disturbance, and anxiety; F32.9 Major depressive disorder, single episode, unspecified; F41.9 Anxiety disorder, unspecified; K21.9 Gastro-esophageal reflux disease without esophagitis; K59.09 Other constipation; M06.9 Rheumatoid arthritis, unspecified; M19.90 Unspecified osteoarthritis, unspecified site; R13.10 Dysphagia, unspecified; Z79.1 Long term (current) use of non-steroidal anti-inflammatories (NSAID); Z79.890 Hormone replacement therapy; Z79.899 Other long term (current) drug therapy; Z82.49 Family history of ischemic heart disease and other diseases of the circulatory system; Z87.01 Personal history of pneumonia (recurrent); Z91.81 History of falling
CPT/HCPCS: 71045; 71046; 80048; 80053; 82947; 85025; 94760

== ENCOUNTER 2020-07-09 05:22 | Inpatient (IN) | payer MEDICARE, OTHER ==
[2020-07-09] MEDS ORDERED: CLINDAMYCIN 600 MG in DEXTROSE 5% IN WATER 50 ML IVPB STA ×2 (05:26)
--- NOTE | 2020-07-09 05:26 | ED ---
General Adult HPI - General Stated complaint: SOB Time Seen by Provider: 07/09/20 05:25 - History of Present Illness Initial comments: Sierra is a 69-year-old female with a history of cognitive delay who [facility]. Patient is transferred to our hospital for admission from an outside hospital. Per report patient has previously been treated with oral Levaquin for presumed aspiration pneumonia. Patient's last dose of Levaquin was scheduled for yesterday or today. Despite compliance with the medication and the patient has progressively worsened. She was brought to an outside hospital day for respiratory distress, she was found to be acutely hypoxic with oxygen saturation in the low 80s on room air, she had a minimally productive cough, was tachycardic on arrival. A septic workup was initiated at outside hospital, patient was treated with supplemental oxygen. Chest x-ray confirmed a right- sided infiltrate with effusion. Patient was treated with vancomycin and Zosyn and transferred to our facility for admission. - Related Data Home Medications Medication Instructions Recorded Confirmed Docusate Sodium [Dok] 100 mg PO DAILY@0700,199901/15/16 10/29/19 Omeprazole [PriLOSEC] 20 mg PO DAILY@0700,1600 01/15/16 10/29/19 polyethylene glycoL 3350 [Miralax] 17 gm PO HS@199901/15/16 10/29/19 risperiDONE [RisperDAL] 0.5 mg PO BID@0700,199901/15/16 10/29/19 Cetirizine HCl [Zyrtec] 10 mg PO HS@199912/06/17 10/29/19 Linaclotide [Linzess] 145 mcg PO DAILY@1600 12/06/17 10/29/19 Meloxicam [Mobic] 15 mg PO DAILY@0700 12/06/17 10/29/19 FLUoxetine HCL [PROzac] 40 mg PO DAILY@0700 10/29/19 10/29/19 Levothyroxine Sodium [Synthroid] 100 mcg PO AC-BRKFST@0530 10/29/19 10/29/19 busPIRone HCL 15 mg PO BID@0700,1600 10/29/19 10/29/19 busPIRone HCL 30 mg PO HS@199910/29/19 10/29/19 Previous Rx's Medication Instructions Recorded Amoxicillin/Potassium Clav 1 tab PO Q12HR #6 tab 10/31/19 [Augmentin 875-125 Tablet] Allergies Allergy/AdvReac Type Severity Reaction Status Date / Time laundry detergent Allergy Unknown Rash/Hives Uncoded 07/09/20 05:44 Review of Systems ROS Statement: Those systems with pertinent positive or pertinent negative responses have been documented in the HPI. ROS Other: All systems not noted in ROS Statement are negative. Past Medical History Past Medical History: GERD/Reflux, Hyperlipidemia, Memory Impairment, Pneumonia, Rheumatoid Arthritis (RA) Additional Past Medical History / Comment(s): 02/08/16 Pt is a [facility] transfer with admitting diagnosis of pneumonia. Pt has also a transfer from [facility] on 01/14 for pnemonia. Pt is nonverbal and unable to participate in obtaining past medical history. Calculation Reviewer able to speak with resort housekeeper and obtain PMH. 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 l WRIST SCREWS IN l THUMB, 6 THEETH REMOVED Past Anesthesia/Blood Transfusion Reactions: No Reported Reaction Past Psychological History: Anxiety, Depression Additional Psychological History / Comment(s): Psychotic disease. Pt resides at [facility]. She is profoundly mentally challenged. She walks without difficulty normally. She feeds herself but food must be chopped small and she will eat too fast. She is afraid of needles. and loud noise Past Alcohol Use History: None Reported Past Drug Use History: None Reported - Past Family History Mother Family Medical History: Coronary Artery Disease (CAD) Additional Family Medical History / Comment(s): Mother is still living. General Exam - General Exam Comments Initial Comments: Physical Exam GENERAL: Chronically ill appearing HENT: Normocephalic, Atraumatic. EYES: PERRL, EOMI PULMONARY: Decreased breath sounds on right CARDIOVASCULAR: RRR Warm and well perfused extremities ABDOMEN: Non-distended SKIN: No rashes or bruising : Deferred NEUROLOGIC: Non-verbal Occasionally follows commands At baseline per caregivers at previous facility Moving all extremities MUSCULOSKELETAL: Moving all extremities with no apparent injury PSYCHIATRIC: Unable to assess, non-verbal, cognitive delay Course Vital Signs 07/09/20 05:24 Temperature 99.6 F Pulse Rate 104 H Respiratory 18 Rate Blood Pressure 111/72 O2 Sat by Pulse 94 L Oximetry Medical Decision Making - Medical Decision Making Patient care was discussed with the transferring physician Nonverbal 69-year-old female brought to the ER from [facility] underwent a septic workup which was concerning for worsening aspiration pneumonia despite treatment with oral Levaquin Patient transferred here for definitive care Outpatient CBC and CMP are unremarkable, lactic acid was elevated at 4.7, patient received vancomycin, Zosyn, IV fluids prior to transfer On arrival patient is hemodynamically stable, oxygen saturation the mid 90s on 3 L nasal cannula oxygen Repeat blood cultures and lactic acid were obtained Patient to be admitted for aspiration pneumonia Disposition Clinical Impression: Aspiration pneumonia, Sepsis with acute hypoxic respiratory failure Disposition: ADMITTED IP TO THIS HOSP Condition: Serious Is patient prescribed a controlled substance at d/c from ED?: No
[2020-07-09] MEDS ORDERED: ACETAMINOPHEN TAB 325 MG TAB PO PRN ×2 (06:12→15:13)
[2020-07-09] MEDS ORDERED: NALOXONE 0.4 MG/ML 1 ML VIAL IV PRN (06:12)
[2020-07-09] MEDS: SODIUM CHLORIDE 0.9% 1,000 ML IV SCH ×3 (06:47→20:58)
[2020-07-09] MEDS ORDERED: SODIUM CHLORIDE 0.9% 1,000 ML IV ONE ×2 (08:05→16:39)
[2020-07-09 10:02] LABS: Albumin 2.9 g/dL (3.5-5.0); Calcium 7.8 mg/dL (8.4-10.2); Potassium 4.4 mmol/L (3.5-5.1); Total Bilirubin 0.5 mg/dL (0.2-1.3); Total Protein 5.6 g/dL (6.3-8.2)
[2020-07-09 10:11] LABS: HCT 34.1 % (34.0-46.0); HGB 10.9 gm/dL (11.4-16.0); MCHC 32.1 g/dL (31.0-37.0); MCV 93.7 fL (80.0-100.0); Mean Platelet Volume 7.2; Platelet Count 275 k/uL (150-450); RBC 3.64 m/uL (3.80-5.40); RDW 14.6 % (11.5-15.5)
[2020-07-09 10:33] LABS: Band Neutrophils % 13 %; Lymphocytes # (M) 1.61 k/uL (1.0-4.8); Monocytes # (M) 2.99 k/uL (0-1.0); Neutrophils % (M) 67 %; Nucleated Red Blood Cells 0 /100 WBC (0-0); Total Cells Counted 100; Toxic Granulation Present; Toxic Vacuolation Present
[2020-07-09] MEDS ORDERED: ONDANSETRON 4 MG/2 ML VIAL IVP PRN (15:13)
--- NOTE | 2020-07-09 15:28 | P.HPIM ---
History of Present Illness H&P Date: 07/09/20 Chief Complaint: Fever This is a 69-year-old female with past medical history noted below significant for developmental delay who is chronically nonverbal that presented to an outside emergency room with worsening respiratory distress and hypoxia. Patient is unable to provide any medical history. Most of the history was obtained by chart review and nursing staff report. Apparently she was having and a minimally productive cough at home. On arrival to the outside hospital patient was tachycardic and hypoxic with O2 sat of 80% on room air. Chest x-ray at the outside facility showed right-sided infiltrate with effusion. Patient was given IV vancomycin and Zosyn and was transferred to our hospital for further management. In the ER, patient blood pressure dropped to systolic in the 80s over 50s. And her lactic acid was elevated. Blood pressure improved signif icantly with IV fluid bolus. She was also given IV clindamycin. She currently will be admitted to the hospital for further management of her medical problems. She was seen by me in the ER. She appeared pleasant and comfortable. No apparent distress. She denies any pain or shortness of breath at this time. Review of Systems Review of system: 14 points review of systems were obtained and were negative except to what were mentioned in the HPI. Past Medical History Past Medical History: Eye Disorder, GERD/Reflux, Hyperlipidemia, Memory Impairment, Pneumonia, Rheumatoid Arthritis (RA) Additional Past Medical History / Comment(s): Profound mentally challenged/cognitive delay-pt is unable to talk but understands alot of what is being said, nonambulatory/wheelchair bound, atrial tachycardia, cardiomegaly, trace mitral and tricuspid regurgitation, lymphedema bilateral legs/feet, dysphagia-pt is to be fed/honey nectar/ground food, pneumonias/hypoxia, R eye cataract, hypothyroidism, spastic tortuous sigmoid colon, mild chronic gastritis, frequent constipation, right knee bursitis, bilateral knee and hip pain, past pressure sore of right heel, iliotibial band syndrome right leg, history of falls, constipation History of Any Multi-Drug Resistant Organisms: None Reported Past Surgical History: Joint Replacement, Orthopedic Surgery Additional Past Surgical History / Comment(s): Total R knee then pt fell/joint became infected, D&C, colonoscopy/EGD, pins L hand, L WRIST SCREWS, L THUMB SURGERY, 6 TEETH REMOVED Past Anesthesia/Blood Transfusion Reactions: No Reported Reaction Smoking Status: Never smoker - Past Family History Mother Family Medical History: Coronary Artery Disease (CAD) Additional Family Medical History / Comment(s): Mother is still living. Medications and Allergies Home Medications Medication Instructions Recorded Confirmed Type Omeprazole [PriLOSEC] 20 mg PO DAILY 01/15/16 07/09/20 History polyethylene glycoL 3350 [Miralax] 17 gm PO HS 01/15/16 07/09/20 History risperiDONE [RisperDAL] 0.5 mg PO BID 01/15/16 07/09/20 History Cetirizine HCl [Zyrtec] 10 mg PO HS 12/06/17 07/09/20 History Linaclotide [Linzess] 145 mcg PO DAILY 12/06/17 07/09/20 History Meloxicam [Mobic] 15 mg PO DAILY 12/06/17 07/09/20 History FLUoxetine HCL [PROzac] 40 mg PO DAILY 10/29/19 07/09/20 History Levothyroxine Sodium [Synthroid] 100 mcg PO AC-BRKFST 10/29/19 07/09/20 History busPIRone HCL 15 mg PO BID 10/29/19 07/09/20 History busPIRone HCL 30 mg PO HS 10/29/19 07/09/20 History Carbamide Peroxide [Debrox Otic] 3 - 5 drops BOTH EARS DIRECTED 07/09/20 07/09/20 History Docusate Oral Soln [Colace Oral 10 ml PO BID 07/09/20 07/09/20 History Soln] Famotidine 20 mg PO HS 07/09/20 07/09/20 History Upadacitinib [Rinvoq ER] 15 mg PO DAILY 07/09/20 07/09/20 History predniSONE 5 mg PO DAILY 07/09/20 07/09/20 History Allergies Allergy/AdvReac Type Severity Reaction Status Date / Time laundry detergent Allergy Unknown Rash/Hives Uncoded 07/09/20 07:42 Physical Exam Vitals: Vital Signs Temp Pulse Pulse Resp BP BP Pulse Ox 07/09/20 11:55 73 15 106/51 100 07/09/20 09:06 98.4 F 92 16 98/54 95 07/09/20 09:03 93 16 98/54 95 08/31/20 08:32 89 16 100/64 95 07/09/20 08:20 91 16 97/57 96 07/09/20 07:30 100.1 F H 88 16 83/57 95 07/09/20 05:24 99.6 F 104 H 18 111/72 94 L Intake and Output 07/09/20 07/09/20 07/09/20 06:59 14:59 22:59 Other: Weight 83.915 kg 83.915 kg General: The patient is awake and alert, in no distress Eye: there is normal conjunctiva bilaterally. Neck: The neck is supple, there is no JVD. Cardiovascular: Normal S1-S2, no S3-S4, no murmurs. Respiratory: Lungs clear to auscultation bilaterally Gastrointestinal: Abdomen is soft, nontender Musculoskeletal: There is no pedal edema. Neurological:. Patient with developmental delay chronically nonverbal and unable to participate/cooperate in the neurologic exam Skin: Skin is warm and dry Results CBC & Chem 7: 07/09/20 09:18 07/09/20 09:18 Labs: Abnormal Lab Results - Last 24 Hours (Table) 07/09/20 07/09/20 07/09/20 Range/Units 06:44 09:18 09:18 WBC 23.0 H (3.8-10.6) k/uL RBC 3.64 L (3.80-5.40) m/uL Hgb 10.9 L (11.4-16.0) gm/dL Neutrophils # (Manual) 18.40 H (1.3-7.7) k/uL Monocytes # (Manual) 2.99 H (0-1.0) k/uL Sodium 134 L (137-145) mmol/L BUN 25 H (7-17) mg/dL Plasma Lactic Acid Christopher 2.5 H* (0.7-2.0) mmol/L Calcium 7.8 L (8.4-10.2) mg/dL Total Protein 5.6 L (6.3-8.2) g/dL Albumin 2.9 L (3.5-5.0) g/dL 07/09/20 Range/Units 09:18 WBC (3.8-10.6) k/uL RBC (3.80-5.40) m/uL Hgb (11.4-16.0) gm/dL Neutrophils # (Manual) (1.3-7.7) k/uL Monocytes # (Manual) (0-1.0) k/uL Sodium (137-145) mmol/L BUN (7-17) mg/dL Plasma Lactic Acid Christopher 2.2 H* (0.7-2.0) mmol/L Calcium (8.4-10.2) mg/dL Total Protein (6.3-8.2) g/dL Albumin (3.5-5.0) g/dL Thrombosis Risk Factor Assmnt - Choose All That Apply Any of the Below Risk Factors Present?: Yes Each Factor Represents 1 point: Obesity (BMI >25), Sepsis (< 1month), Serious lung disease incl. pneumonia (< 1month) Other Risk Factors: Yes Each Risk Factor Represents 2 Points: Age 61-74 years Other congenital or acquired thrombophilia - If yes, enter type in comment: No Thrombosis Risk Factor Assessment Total Risk Factor Score: 5 Thrombosis Risk Factor Assessment Level: High Risk Assessment and Plan Assessment: 1. Severe sepsis with septic shock, blood pressure improved significantly with aggressive IV fluid hydration. Lactic acid is back to normal. Patient was given vancomycin, clindamycin, and Zosyn in the ER. We will continue IV fluid hydration with normal saline at 75 mL per hour. We will follow up on Blood culture at outside hospital 2. Right lung pneumonia: Most likely aspiration. Continue antibiotic with IV Unasyn. Patient is on modified diet with nectar thick liquid per speech recommendation during this admission. 3. Developmental delay chronically nonverbal, at baseline 4. Chronic medical conditions: Rheumatoid arthritis on chronic prednisone, GERD, hyperlipidemia, hypothyroidism, and depression: Continue home medication 5. DVT prophylaxis with subcu heparin Today, I reviewed her medication list and lab work results. Continue current regimen. Repeat chest x-ray in the morning.
[2020-07-09] MEDS: AMPICILLIN-SULBACTAM 3 GM in SODIUM CHLORIDE 0.9% 100 ML IVPB SCH (17:05)
[2020-07-09] MEDS: busPIRone HCl 5 MG TAB PO SCH (17:55)
[2020-07-09] MEDS: busPIRone HCl 10 MG TAB PO SCH (20:57)
[2020-07-09] MEDS: DOCUSATE ORAL SOLN 100 MG/10 ML CUP PO SCH (20:57)
[2020-07-09] MEDS: FAMOTIDINE 20 MG TAB PO SCH (20:57)
[2020-07-09] MEDS: LORATADINE 10 MG TAB PO SCH (20:57)
[2020-07-09] MEDS: HEPARIN SODIUM,PORCINE 5,000 UNIT/ML 1 ML VIAL SQ SCH (20:57)
[2020-07-09] MEDS: risperiDONE 0.5 MG TAB PO SCH (20:57)
[2020-07-09] MEDS: polyethylene glycoL 3350 17 GM POWD.PACK PO SCH (20:57)
[2020-07-09] MEDS ORDERED: busPIRone HCl 5 MG TAB PO SCH (21:00)
[2020-07-10] MEDS: AMPICILLIN-SULBACTAM 3 GM in SODIUM CHLORIDE 0.9% 100 ML IVPB SCH ×4 (00:38→23:25)
[2020-07-10] MEDS: SODIUM CHLORIDE 0.9% 1,000 ML IV SCH ×3 (05:26→17:52)
[2020-07-10] MEDS: NON FORMULARY DRUG (Linaclotide [Linzess] 145 MCG) PO SCH (07:42)
[2020-07-10] MEDS: busPIRone HCl 5 MG TAB PO SCH ×2 (07:47→17:14)
[2020-07-10] MEDS: HEPARIN SODIUM,PORCINE 5,000 UNIT/ML 1 ML VIAL SQ SCH ×2 (07:48→22:13)
[2020-07-10] MEDS: FLUoxetine HCL 20 MG CAP PO SCH (07:48)
[2020-07-10] MEDS: DOCUSATE ORAL SOLN 100 MG/10 ML CUP PO SCH ×2 (07:48→22:11)
[2020-07-10] MEDS: MELOXICAM 7.5 MG TAB PO SCH (07:48)
[2020-07-10] MEDS: PANTOPRAZOLE 40 MG TABLET PO SCH (07:49)
[2020-07-10] MEDS: risperiDONE 0.5 MG TAB PO SCH ×2 (07:49→22:13)
[2020-07-10] MEDS: LEVOTHYROXINE 100 MCG TAB PO SCH (07:49)
[2020-07-10] MEDS: predniSONE 5 MG TAB PO SCH (07:49)
[2020-07-10] MEDS: UPADACITINIB 15 MG PO SCH (07:53)
[2020-07-10 09:56] LABS: Basophils % (A) 0 %; Eosinophils # (A) 0.1 k/uL (0-0.7); Eosinophils % (A) 1 %; HCT 32.1 % (34.0-46.0); HGB 10.2 gm/dL (11.4-16.0); Hypochromasia Slight; Lymphocytes # (A) 0.9 k/uL (1.0-4.8); Lymphocytes % (A) 6 %; MCH 30.3 pg (25.0-35.0); MCHC 31.8 g/dL (31.0-37.0); MCV 95.3 fL (80.0-100.0); Mean Platelet Volume 6.9; Monocytes # (A) 0.4 k/uL (0-1.0); Monocytes % (A) 3 %; Neutrophils # (A) 14.7 k/uL (1.3-7.7); Neutrophils % (A) 90 %; Platelet Count 296 k/uL (150-450); RBC 3.37 m/uL (3.80-5.40); RDW 14.7 % (11.5-15.5); WBC 16.4 k/uL (3.8-10.6)
[2020-07-10 10:07] LABS: African American GFR (CKD) >90 (>60 ml/min/1.73 sqM); Anion Gap 2 mmol/L; Blood Urea Nitrogen 13 mg/dL (7-17); Calcium 7.6 mg/dL (8.4-10.2); Carbon Dioxide 26 mmol/L (22-30); Chloride 110 mmol/L (98-107); Glucose 100 mg/dL (74-99); Non-African American GFR(CKD) 89 (>60 ml/min/1.73 sqM); Potassium 3.8 mmol/L (3.5-5.1); Sodium 138 mmol/L (137-145)
--- NOTE | 2020-07-10 12:23 | P.PN ---
Subjective Progress Note Date: 07/10/20 Patient is awake and alert. She appears comfortable. No acute events overnight reported by nursing staff. Objective - Vital Signs Vital signs: Vital Signs Temp 98.3 F 07/10/20 07:00 Pulse 68 07/10/20 07:00 Resp 20 07/10/20 07:00 BP 105/67 07/10/20 07:00 Pulse Ox 95 07/10/20 07:00 Intake & Output 07/09/20 07/10/20 07/10/20 18:59 06:59 18:59 Weight 83.915 kg Other: Voiding Method Incontinent Incontinent # Voids 1 2 # Bowel Movements 1 1 - Exam General: The patient is awake and alert, in no distress Eye: there is normal conjunctiva bilaterally. Neck: The neck is supple, there is no JVD. Cardiovascular: Normal S1-S2, no S3-S4, no murmurs. Respiratory: Lungs clear to auscultation bilaterally Gastrointestinal: Abdomen is soft, nontender Musculoskeletal: There is no pedal edema. Neurological:. Speech is normal. Skin: Skin is warm and dry - Labs CBC & Chem 7: 07/10/20 09:26 07/10/20 09:26 Labs: Abnormal Lab Results - Last 24 Hours (Table) 07/10/20 07/10/20 Range/Units 09:26 09:26 WBC 16.4 H (3.8-10.6) k/uL RBC 3.37 L (3.80-5.40) m/uL Hgb 10.2 L (11.4-16.0) gm/dL Hct 32.1 L (34.0-46.0) % Neutrophils # 14.7 H (1.3-7.7) k/uL Lymphocytes # 0.9 L (1.0-4.8) k/uL Chloride 110 H (98-107) mmol/L Glucose 100 H (74-99) mg/dL Calcium 7.6 L (8.4-10.2) mg/dL Microbiology - Last 24 Hours (Table) 07/09/20 06:44 Blood Culture - Preliminary Blood No Growth after 24 hours Assessment and Plan Assessment: This is a 6-year-old female with past medical history noted below significant for developmental delay who is chronically nonverbal presented to the emergency room with shortness of breath and cough. Patient was evaluated and admitted to the hospital for further management for medical problems noted below. 1. Severe sepsis with septic shock, blood pressure improved significantly with aggressive IV fluid hydration. Lactic acid is back to normal. Patient was given vancomycin, clindamycin, and Zosyn in the ER. We will continue IV fluid hydration with normal saline at 75 mL per hour. We will follow up on Blood culture at outside hospital 2. Right lung pneumonia: Most likely aspiration. Continue antibiotic with IV Unasyn. Patient is on modified diet with nectar thick liquid per speech recommendation during this admission. 3. Developmental delay chronically nonverbal, at baseline 4. Chronic medical conditions: Rheumatoid arthritis on chronic prednisone, GERD, hyperlipidemia, hypothyroidism, and depression: Continue home medication 5. DVT prophylaxis with subcu heparin Today, I reviewed her medication list and lab work results. Continue current regimen. Repeat chest x-ray pending.
--- NOTE | 2020-07-10 18:35 | XR ---
EXAMINATION TYPE: XR chest 2V DATE OF EXAM: 07/10/2020 COMPARISON: 10/31/2019 HISTORY: Pneumonia TECHNIQUE: FINDINGS: There is some patchy airspace infiltrate and volume loss in the right hemithorax. Left lung is fairly clear. There is some atelectasis at the medial left lung base. There is no heart failure. IMPRESSION: There is increased infiltrate and atelectasis in the right lung compared to old exam. No heart failure seen.
[2020-07-10] MEDS: polyethylene glycoL 3350 17 GM POWD.PACK PO SCH (22:11)
[2020-07-10] MEDS: FAMOTIDINE 20 MG TAB PO SCH (22:13)
[2020-07-10] MEDS: LORATADINE 10 MG TAB PO SCH (22:13)
[2020-07-10] MEDS: busPIRone HCl 10 MG TAB PO SCH (22:13)
[2020-07-11 07:35] VITALS: RESP 18
[2020-07-11] MEDS: HEPARIN SODIUM,PORCINE 5,000 UNIT/ML 1 ML VIAL SQ SCH (08:20)
[2020-07-11] MEDS: FLUoxetine HCL 20 MG CAP PO SCH (08:20)
[2020-07-11] MEDS: DOCUSATE ORAL SOLN 100 MG/10 ML CUP PO SCH (08:20)
[2020-07-11] MEDS: MELOXICAM 7.5 MG TAB PO SCH (08:20)
[2020-07-11] MEDS: PANTOPRAZOLE 40 MG TABLET PO SCH (08:21)
[2020-07-11] MEDS: UPADACITINIB 15 MG PO SCH (08:21)
[2020-07-11] MEDS: busPIRone HCl 5 MG TAB PO SCH ×2 (08:21→16:46)
[2020-07-11] MEDS: predniSONE 5 MG TAB PO SCH (08:21)
[2020-07-11] MEDS: LEVOTHYROXINE 100 MCG TAB PO SCH (08:21)
[2020-07-11] MEDS: risperiDONE 0.5 MG TAB PO SCH (08:21)
[2020-07-11] MEDS: SODIUM CHLORIDE 0.9% 1,000 ML IV SCH (08:26)
[2020-07-11] MEDS: AMPICILLIN-SULBACTAM 3 GM in SODIUM CHLORIDE 0.9% 100 ML IVPB SCH ×2 (08:26→16:46)
[2020-07-11] MEDS: NON FORMULARY DRUG (Linaclotide [Linzess] 145 MCG) PO SCH (08:26)
[2020-07-11 08:51] LABS: Basophils % (A) 0 %; Eosinophils # (A) 0.1 k/uL (0-0.7); Eosinophils % (A) 1 %; HCT 33.8 % (34.0-46.0); HGB 10.4 gm/dL (11.4-16.0); Hypochromasia Slight; Lymphocytes # (A) 1.1 k/uL (1.0-4.8); Lymphocytes % (A) 13 %; MCH 29.6 pg (25.0-35.0); MCHC 30.7 g/dL (31.0-37.0); MCV 96.5 fL (80.0-100.0); Mean Platelet Volume 7.1; Monocytes # (A) 0.3 k/uL (0-1.0); Monocytes % (A) 4 %; Neutrophils # (A) 7.2 k/uL (1.3-7.7); Neutrophils % (A) 81 %; Platelet Count 301 k/uL (150-450); WBC 8.9 k/uL (3.8-10.6)
[2020-07-11 09:00] LABS: African American GFR (CKD) >90 (>60 ml/min/1.73 sqM); Anion Gap 2 mmol/L; Blood Urea Nitrogen 11 mg/dL (7-17); Calcium 8.2 mg/dL (8.4-10.2); Carbon Dioxide 25 mmol/L (22-30); Chloride 113 mmol/L (98-107); Glucose 79 mg/dL (74-99); Non-African American GFR(CKD) 90 (>60 ml/min/1.73 sqM); Potassium 4.1 mmol/L (3.5-5.1); Sodium 140 mmol/L (137-145)
--- NOTE | 2020-07-11 10:20 | P.DS ---
Providers Date of admission: 07/09/20 06:16 Expected date of discharge: 07/11/20 Attending physician: Carmelina Perez MD Primary care physician: Physician Nonsta Hospital Course: This is a 69-year-old female with past medical history noted below significant for developmental delay who is chronically nonverbal that presented to the emergency room with shortness of breath and cough. Patient was evaluated and admitted to the hospital for further management for medical problems noted below. 1. Severe sepsis with septic shock, blood pressure improved significantly with aggressive IV fluid hydration. Lactic acid is back to normal. Patient was given vancomycin, clindamycin, and Zosyn in the ER. Blood culture negative to date 2. Right lung pneumonia: Most likely aspiration. Started on IV Unasyn. We finished 7 days antibiotic course with Augmentin. Patient is on modified diet with nectar thick liquid per speech recommendation. Continue aspiration precautions 3. Developmental delay chronically nonverbal, at baseline 4. Chronic medical conditions: Rheumatoid arthritis on chronic prednisone, GERD, hyperlipidemia, hypothyroidism, and depression: Continue home medication Patient will be discharged in a stable condition back to the senior living. Resume home medication. Continue aspiration precautions. Patient Condition at Discharge: Fair Plan - Discharge Summary Discharge Rx Participant: No New Discharge Prescriptions: New Amoxic-Pot Clav 875-125Mg [Augmentin 875-125] 1 tab PO Q12HR 5 Days #10 tab Continue polyethylene glycoL 3350 [Miralax] 17 gm PO HS risperiDONE [RisperDAL] 0.5 mg PO BID Omeprazole [PriLOSEC] 20 mg PO DAILY Meloxicam [Mobic] 15 mg PO DAILY Cetirizine HCl [Zyrtec] 10 mg PO HS Linaclotide [Linzess] 145 mcg PO DAILY Levothyroxine Sodium [Synthroid] 100 mcg PO AC-BRKFST FLUoxetine HCL [PROzac] 40 mg PO DAILY busPIRone HCL 30 mg PO HS busPIRone HCL 15 mg PO BID Upadacitinib [Rinvoq] 15 mg PO DAILY predniSONE 5 mg PO DAILY Famotidine 20 mg PO HS Docusate Oral Soln [Colace Oral Soln] 10 ml PO BID Carbamide Peroxide [Debrox Otic] 3 - 5 drops BOTH EARS DIRECTED Discharge Medication List Omeprazole [PriLOSEC] 20 mg PO DAILY 01/15/16 [History] polyethylene glycoL 3350 [Miralax] 17 gm PO HS 01/15/16 [History] risperiDONE [RisperDAL] 0.5 mg PO BID 01/15/16 [History] Cetirizine HCl [Zyrtec] 10 mg PO HS 12/06/17 [History] Linaclotide [Linzess] 145 mcg PO DAILY 12/06/17 [History] Meloxicam [Mobic] 15 mg PO DAILY 12/06/17 [History] FLUoxetine HCL [PROzac] 40 mg PO DAILY 10/29/19 [History] Levothyroxine Sodium [Synthroid] 100 mcg PO AC-BRKFST 10/29/19 [History] busPIRone HCL 15 mg PO BID 10/29/19 [History] busPIRone HCL 30 mg PO HS 10/29/19 [History] Carbamide Peroxide [Debrox Otic] 3 - 5 drops BOTH EARS DIRECTED 07/09/20 [History] Docusate Oral Soln [Colace Oral Soln] 10 ml PO BID 07/09/20 [History] Famotidine 20 mg PO HS 07/09/20 [History] Upadacitinib [Rinvoq] 15 mg PO DAILY 07/09/20 [History] predniSONE 5 mg PO DAILY 07/09/20 [History] Amoxic-Pot Clav 875-125Mg [Augmentin 875-125] 1 tab PO Q12HR 5 Days #10 tab 07/11/20 [Rx] Follow up Appointment(s)/Referral(s): Nonstaff,Physician [Primary Care Provider] - 1-2 days Discharge Disposition: TRANSFER TO SNF/ECF
[2020-07-11 14:25] VITALS: BP 104/63; PULSE 60; TEMP 98.3
== END 2020-07-11 16:32 | DRG 871 ==
LOC: EC 05:22 → 5NMEDONC 06:16 → 4SSUR 15:11
PROVIDERS: ADMIT Internal Medicine; ATTEND Internal Medicine
DX: A41.9 Sepsis, unspecified organism (principal); J69.0 Pneumonitis due to inhalation of food and vomit; J96.01 Acute respiratory failure with hypoxia; R65.21 Severe sepsis with septic shock; Q43.2 Other congenital functional disorders of colon; K21.9 Gastro-esophageal reflux disease without esophagitis; E78.5 Hyperlipidemia, unspecified; M06.9 Rheumatoid arthritis, unspecified; G31.84 Mild cognitive impairment of uncertain or unknown etiology; K59.00 Constipation, unspecified; K29.50 Unspecified chronic gastritis without bleeding; E03.9 Hypothyroidism, unspecified; F31.9 Bipolar disorder, unspecified; F41.9 Anxiety disorder, unspecified; M76.31 Iliotibial band syndrome, right leg; R29.6 Repeated falls; I08.3 Combined rheumatic disorders of mitral, aortic and tricuspid valves; Z79.899 Other long term (current) drug therapy; Z79.890 Hormone replacement therapy; Z79.52 Long term (current) use of systemic steroids; Z79.1 Long term (current) use of non-steroidal anti-inflammatories (NSAID); Z91.09 Other allergy status, other than to drugs and biological substances; Z87.01 Personal history of pneumonia (recurrent); Z91.81 History of falling; Z98.890 Other specified postprocedural states; Z82.49 Family history of ischemic heart disease and other diseases of the circulatory system; Z99.3 Dependence on wheelchair; Z86.19 Personal history of other infectious and parasitic diseases
CPT/HCPCS: 71046; 80048; 80053; 83605; 85025; 87040; 96361; 96365; 99285

== ENCOUNTER → 2020-08-27 | Outpatient (CLI) | payer MEDICARE, OTHER ==
--- NOTE | 2020-08-27 18:02 | FL ---
EXAMINATION TYPE: FL barium swallow w video DATE OF EXAM: 08/27/2020 MODIFIED BARIUM SWALLOW FLUOROSCOPY EXAM CLINICAL HISTORY: Recurrent aspiration. Pneumonia. TECHNIQUE: Notified barium swallow study is performed utilizing thin liquid barium, nectar thick liqu id barium, barium thick puree, and barium coated cracker. COMPARISON: None. FINDINGS: The oral and pharyngeal phases show satisfactory initiation and propagation with all modali ties tested. Normal mastication is seen with solid modalities tested. There is penetration with santos id and nectar consistencies. No aspiration. Total fluoroscopy time 2 minutes 0 seconds. IMPRESSION: No evidence of aspiration. Please refer to speech therapist notes for further details.
== END | disposition home or self-care (01) ==
LOC: RADFLMAIN 11:04
PROVIDERS: ATTEND Pediatrics
DX: J18.9 Pneumonia, unspecified organism (principal); Z87.01 Personal history of pneumonia (recurrent)
CPT/HCPCS: 74230

== ENCOUNTER 2020-11-07 05:45 | Inpatient (IN) | payer MEDICARE, OTHER ==
[2020-11-07] MEDS ORDERED: PNEUMONIA PROTOCOL UTILIZED 1 EACH MISC PO PRN (05:49)
[2020-11-07] MEDS ORDERED: AZITHROMYCIN 500 MG in SODIUM CHLORIDE 0.9% 250 ML IVPB STA (05:49)
--- NOTE | 2020-11-07 05:51 | ED ---
Recheck HPI - General Stated Complaint: Pneumonia Time Seen by Provider: 11/07/20 05:49 Source: RN notes reviewed, old records reviewed Mode of arrival: EMS Limitations: no limitations - History of Present Illness Initial Comments: This is a 70-year-old female DF she presents today for evaluation of severe shortness of breath, known bilateral pneumonia accepted in transfer patient was transferred us for treatment of bilateral pneumonia and weakness. Patient suffers no current complaints patient is a poor strain secondary to developmental delay MD Complaint: abnormal lab (Known bilateral pneumonia) -: unknown Returns Today for: Called Because of Abnormal Lab/Test (Sent for treatment of IV antibiotics), persistent/worsening pain related to initial visit Symptoms Since Prior Visit: fever Associated Symptoms: none Treatments Prior to Arrival: Given Antibiotics on - Related Data Home Medications Medication Instructions Recorded Confirmed Omeprazole [PriLOSEC] 20 mg PO DAILY 01/15/16 07/09/20 polyethylene glycoL 3350 [Miralax] 17 gm PO HS 01/15/16 07/09/20 risperiDONE [RisperDAL] 0.5 mg PO BID 01/15/16 07/09/20 Cetirizine HCl [Zyrtec] 10 mg PO HS 12/06/17 07/09/20 Linaclotide [Linzess] 145 mcg PO DAILY 12/06/17 07/09/20 Meloxicam [Mobic] 15 mg PO DAILY 12/06/17 07/09/20 FLUoxetine HCL [PROzac] 40 mg PO DAILY 10/29/19 07/09/20 Levothyroxine Sodium [Synthroid] 100 mcg PO AC-BRKFST 10/29/19 07/09/20 busPIRone HCL 15 mg PO BID 10/29/19 07/09/20 busPIRone HCL 30 mg PO HS 10/29/19 07/09/20 Carbamide Peroxide [Debrox Otic] 3 - 5 drops BOTH EARS DIRECTED 07/09/20 07/09/20 Docusate Oral Soln [Colace Oral 10 ml PO BID 07/09/20 07/09/20 Soln] Famotidine 20 mg PO HS 07/09/20 07/09/20 Upadacitinib [Rinvoq] 15 mg PO DAILY 07/09/20 07/09/20 predniSONE 5 mg PO DAILY 07/09/20 07/09/20 Previous Rx's Medication Instructions Recorded Amoxic-Pot Clav 875-125Mg 1 tab PO Q12HR 5 Days #10 tab 07/11/20 [Augmentin 875-125] Allergies Allergy/AdvReac Type Severity Reaction Status Date / Time laundry detergent Allergy Unknown Rash/Hives Uncoded 07/09/20 07:42 Review of Systems ROS Statement: Those systems with pertinent positive or pertinent negative responses have been documented in the HPI. ROS Other: All systems not noted in ROS Statement are negative. Past Medical History Past Medical History: Eye Disorder, GERD/Reflux, Hyperlipidemia, Memory Impairment, Pneumonia, Rheumatoid Arthritis (RA) Additional Past Medical History / Comment(s): Profound mentally challenged/cognitive delay-pt is unable to talk but understands alot of what is being said, nonambulatory/wheelchair bound, atrial tachycardia, cardiomegaly, trace mitral and tricuspid regurgitation, lymphedema bilateral legs/feet, dysphagia-pt is to be fed/honey nectar/ground food, pneumonias/hypoxia, R eye cataract, hypothyroidism, spastic tortuous sigmoid colon, mild chronic gastritis, frequent constipation, right knee bursitis, bilateral knee and hip pain, past pressure sore of right heel, iliotibial band syndrome right leg, history of falls, constipation History of Any Multi-Drug Resistant Organisms: None Reported Past Surgical History: Joint Replacement, Orthopedic Surgery Additional Past Surgical History / Comment(s): Total R knee then pt fell/joint became infected, D&C, colonoscopy/EGD, pins L hand, L WRIST SCREWS, L THUMB SURGERY, 6 TEETH REMOVED Past Anesthesia/Blood Transfusion Reactions: No Reported Reaction Smoking Status: Never smoker - Past Family History Mother Family Medical History: Coronary Artery Disease (CAD) Additional Family Medical History / Comment(s): Mother is still living. General Exam General appearance: alert, in no apparent distress Head exam: Present: atraumatic, normocephalic, normal inspection Eye exam: Present: normal appearance, PERRL, EOMI. Absent: scleral icterus, conjunctival injection, periorbital swelling ENT exam: Present: normal exam, mucous membranes moist Neck exam: Present: normal inspection. Absent: tenderness, meningismus, lymphadenopathy Respiratory exam: Present: normal lung sounds bilaterally. Absent: respiratory distress, wheezes, rales, rhonchi, stridor Cardiovascular Exam: Present: regular rate, normal rhythm, normal heart sounds. Absent: systolic murmur, diastolic murmur, rubs, gallop, clicks GI/Abdominal exam: Present: soft, normal bowel sounds. Absent: distended, ten derness, guarding, rebound, rigid Extremities exam: Present: normal inspection, full ROM, normal capillary refill. Absent: tenderness, pedal edema, joint swelling, calf tenderness Back exam: Present: normal inspection Neurological exam: Present: alert, oriented X3, CN II-XII intact Psychiatric exam: Present: normal affect, normal mood Skin exam: Present: warm, dry, intact, normal color. Absent: rash Course Vital Signs 11/07/20 11/07/20 05:47 06:20 Temperature 98 F Pulse Rate 99 92 Respiratory 18 18 Rate Blood Pressure 98/61 89/66 O2 Sat by Pulse 98 94 L Oximetry - Reevaluation(s) Reevaluation #1: 11/07/20 06:27 Medical record is reviewed Reevaluation #2: 11/07/20 06:27 spoke with transferring physician Further review transferring paperwork Reevaluation #3: 11/07/20 06:27 Patient denying any current complaints Medical Decision Making - Medical Decision Making 70 female to the ER for evaluation patient will be admitted for treatment of bilateral pneumonia - EKG Data -: EKG Interpreted by Me (EKG is sinus rhythm 96 AL 186 QRS 78 QTc 449) Disposition Clinical Impression: Pneumonia, Dehydration Disposition: ADMITTED IP TO THIS HOSP Condition: Fair Is patient prescribed a controlled substance at d/c from ED?: No
[2020-11-07] MEDS: SODIUM CHLORIDE 0.9% 1,000 ML IV SCH ×2 (06:19→15:52)
[2020-11-07] MEDS: ENOXAPARIN 40 MG/0.4 ML SYRINGE SQ SCH (10:28)
--- NOTE | 2020-11-07 15:46 | P.HPIM ---
History of Present Illness H&P Date: 11/07/20 Chief Complaint: Shortness of breath This is a 70-year-old female she presented into the emergency department with the increasing shortness of breath, patient has bilateral pneumonia him a patient sent over here for IV antibiotics, her history significant for GERD, depression and mood disorder, hypothyroidism, dyslipidemia, dementia and Alzheimer's disease, and currently she is on 4 L oxygen with marginal blood pressure, will do S x-ray and basic labs, Coreg 19 is negative Review of Systems All systems: negative Past Medical History Past Medical History: Eye Disorder, GERD/Reflux, Hyperlipidemia, Memory Impairment, Pneumonia, Rheumatoid Arthritis (RA) Additional Past Medical History / Comment(s): Profound mentally challenged/cognitive delay-pt is unable to talk but understands alot of what is being said, nonambulatory/wheelchair bound, atrial tachycardia, cardiomegaly, trace mitral and tricuspid regurgitation, lymphedema bilateral legs/feet, dysphagia-pt is to be fed/ground chopped with moisture/supervision, pneumonias/hypoxia, pneumonia with sepsis/septic shock, R eye cataract, hypothyroidism, spastic tortuous sigmoid colon, mild chronic gastritis, frequent constipation, right knee bursitis, bilateral knee and hip pain, past pressure sore of right heel, iliotibial band syndrome right leg, history of falls, constipation, past R radial fracture, R hip bursitis. History of Any Multi-Drug Resistant Organisms: None Reported Past Surgical History: Joint Replacement, Orthopedic Surgery Additional Past Surgical History / Comment(s): Total R knee then pt fell/joint became infected, D&C, colonoscopy/EGD, pins L hand, L WRIST SCREWS, L THUMB SURGERY, 6 TEETH REMOVED Past Anesthesia/Blood Transfusion Reactions: No Reported Reaction Smoking Status: Never smoker - Past Family History Mother Family Medical History: Coronary Artery Disease (CAD) Additional Family Medical History / Comment(s): Mother is still living. Medications and Allergies Home Medications Medication Instructions Recorded Confirmed Type Omeprazole [PriLOSEC] 20 mg PO BID@0700,1600 01/15/16 11/07/20 History polyethylene glycoL 3350 [Miralax] 17 gm PO HS@199901/15/16 11/07/20 History risperiDONE [RisperDAL] 0.5 mg PO BID@0700,199901/15/16 11/07/20 History Cetirizine HCl [Zyrtec] 10 mg PO HS@199912/06/17 11/07/20 History Linaclotide [Linzess] 145 mcg PO DAILY@1600 12/06/17 11/07/20 History Meloxicam [Mobic] 15 mg PO DAILY@0700 12/06/17 11/07/20 History FLUoxetine HCL [PROzac] 40 mg PO DAILY@0700 10/29/19 11/07/20 History Levothyroxine Sodium [Synthroid] 100 mcg PO AC-BRKFST@0530 10/29/19 11/07/20 History busPIRone HCL 15 mg PO BID@0700,159910/29/19 11/07/20 History busPIRone HCL 30 mg PO HS@199910/29/19 11/07/20 History Carbamide Peroxide [Debrox Otic] 3 - 5 drops BOTH EARS DIRECTED 07/09/20 11/07/20 History Docusate Oral Soln [Colace Oral 100 mg PO BID@0700,199907/09/20 11/07/20 History Soln] Famotidine 20 mg PO HS@199907/09/20 11/07/20 History predniSONE 5 mg PO DAILY@0700 07/09/20 11/07/20 History Cranberry 300mg 1 tab PO AC-BID 11/07/20 11/07/20 History Hydroxychloroquine Sulfate 200 mg PO BID@0700,199911/07/20 11/07/20 History [Plaquenil] LORazepam [Ativan] 2 mg PO HS 11/07/20 11/07/20 History Allergies Allergy/AdvReac Type Severity Reaction Status Date / Time laundry detergent Allergy Unknown Rash/Hives Uncoded 11/07/20 07:27 Physical Exam Vitals: Vital Signs Temp Pulse Pulse Resp BP BP Pulse Ox 11/07/20 14:00 97.9 F 80 19 132/45 96 11/07/20 08:00 98.4 F 85 20 103/66 97 11/07/20 06:20 92 18 89/66 94 L 11/07/20 05:47 98 F 99 18 98/61 98 Intake and Output 11/07/20 11/07/20 11/07/20 06:59 14:59 22:59 Other: Voiding Method Incontinent Weight 82.554 kg 82.554 kg - Constitutional General appearance: average body habitus, disheveled - EENT Eyes: PERRLA Ears: bilateral: normal - Neck Carotids: bilateral: upstroke normal - Respiratory Respiratory: bilateral: diminished - Cardiovascular Heart sounds: normal: S1, S2 - Gastrointestinal General gastrointestinal: normal bowel sounds - Musculoskeletal Musculoskeletal: generalized weakness Thrombosis Risk Factor Assmnt - Choose All That Apply Any of the Below Risk Factors Present?: Yes Each Factor Represents 1 point: Medical pt on bed rest, Obesity (BMI >25), Serious lung disease incl. pneumonia (< 1month) Other Risk Factors: Yes Each Risk Factor Represents 2 Points: Age 61-74 years, Patient confined to bed Other congenital or acquired thrombophilia - If yes, enter type in comment: No Thrombosis Risk Factor Assessment Total Risk Factor Score: 7 Thrombosis Risk Factor Assessment Level: High Risk Assessment and Plan Assessment: Bilateral pneumonia Acute hypoxic respiratory failure History of dementia and Alzheimer's disease GERD Advanced rheumatoid arthritis Failure to thrive and medical tablet daily Plan: Patient is being started on broad-spectrum antibiotics gentle rehydration will repeat and labs and chest x-ray Time with Patient: Greater than 30
--- NOTE | 2020-11-07 16:47 | XR ---
EXAMINATION TYPE: XR chest 1V DATE OF EXAM: 11/07/2020 COMPARISON: 07/10/2020 HISTORY: Pneumonia TECHNIQUE: Single view FINDINGS: There is some patchy interstitial infiltrates in both lungs. Heart size is normal. There ar e no hilar masses. Thoracic aorta is atheromatous. The bony thorax is intact. IMPRESSION: Patchy interstitial pulmonary infiltrates with basilar subsegmental atelectasis. This gustabo ears slightly worse than last exam.
[2020-11-07 16:53] LABS: Basophils % (A) 0 %; Eosinophils # (A) 0.1 k/uL (0-0.7); Eosinophils % (A) 0 %; HGB 10.7 gm/dL (11.4-16.0); Lymphocytes # (A) 0.7 k/uL (1.0-4.8); Lymphocytes % (A) 3 %; MCH 28.9 pg (25.0-35.0); MCHC 32.4 g/dL (31.0-37.0); MCV 89.1 fL (80.0-100.0); Mean Platelet Volume 7.1; Monocytes # (A) 0.7 k/uL (0-1.0); Monocytes % (A) 3 %; Neutrophils # (A) 18.4 k/uL (1.3-7.7); Neutrophils % (A) 92 %; Platelet Count 249 k/uL (150-450); RBC 3.71 m/uL (3.80-5.40); RDW 13.5 % (11.5-15.5); WBC 19.9 k/uL (3.8-10.6)
[2020-11-08] MEDS: SODIUM CHLORIDE 0.9% 1,000 ML IV SCH ×2 (02:35→11:55)
[2020-11-08] MEDS: AZITHROMYCIN 500 MG TAB PO SCH (05:52)
[2020-11-08 06:09] LABS: Appearance,Urine Clear (Clear); Bilirubin,Urine Negative (Negative); Blood,Urine Negative (Negative); Color,Urine Yellow; Glucose,Urine (UA) Negative (Negative); Ketones,Urine Negative (Negative); Leukocyte Esterase,Urine Negative (Negative); Mucus,Urine Rare /hpf; Nitrite,Urine Negative (Negative); PH, Urine 6.5 (5.0-8.0); Protein,Urine 1+ (Negative); RBC,Urine 1 /hpf (0-5); Specific Gravity,Urine 1.028 (1.001-1.035); Squamous Epithelial Cell,Urine 1 /hpf (0-4); Urobilinogen,Urine <2.0 mg/dL (<2.0); WBC,Urine 2 /hpf (0-5)
--- NOTE | 2020-11-08 09:50 | XR ---
EXAMINATION TYPE: XR chest 1V DATE OF EXAM: 11/08/2020 COMPARISON: 11/07/2020 INDICATION: Pneumonia TECHNIQUE: Single frontal view of the chest is obtained. FINDINGS: The heart size is normal. The pulmonary vasculature is normal. Mild infiltrate is within the right lower lobe. Lung schaefer appear improving from comparison IMPRESSION: 1. Minimal residual right lower lobe infiltrate. 2. Infiltrates improved from comparison
[2020-11-08] MEDS: ENOXAPARIN 40 MG/0.4 ML SYRINGE SQ SCH (10:00)
[2020-11-08] MEDS ORDERED: CARBAMIDE PEROXIDE 6.5% DROPS 15 ML BTL BOTH EARS PRN (10:15)
[2020-11-08 10:51] LABS: Albumin 3.3 g/dL (3.80-4.90); Albumin/Globulin Ratio 1.27 (1.60-3.17); Anion Gap 9.7 mmol/L (4.00-12.00); Calcium 7.8 mg/dL (8.7-10.3); Carbon Dioxide 23.3 mmol/L (21.6-31.8); Globulin 2.6 g/dL (1.6-3.3); Non-African American GFR(CKD) 74.2 (60.0-200.0); Potassium 4.8 mmol/L (3.5-5.5); Total Bilirubin 0.2 mg/dL (0.2-1.2); Total Protein 5.9 g/dL (6.2-8.2)
[2020-11-08] MEDS: PANTOPRAZOLE 40 MG TABLET PO SCH (11:55)
[2020-11-08] MEDS: NON FORMULARY DRUG (Linaclotide [Linzess] 145 MCG Capsule) PO SCH (15:13)
[2020-11-08] MEDS: busPIRone HCl 5 MG TAB PO SCH (15:18)
[2020-11-08] MEDS ORDERED: CRANBERRY 300 MG PO SCH (17:30)
[2020-11-08] MEDS: DOCUSATE ORAL SOLN 100 MG/10 ML CUP PO SCH (20:36)
[2020-11-08] MEDS: busPIRone HCl 10 MG TAB PO SCH (20:36)
[2020-11-08] MEDS: risperiDONE 0.5 MG TAB PO SCH (20:37)
[2020-11-08] MEDS: FAMOTIDINE 20 MG TAB PO SCH (20:37)
[2020-11-08] MEDS: LORATADINE 10 MG TAB PO SCH (20:37)
[2020-11-08] MEDS: HYDROXYCHLOROQUINE SULFATE 200 MG TAB PO SCH (20:37)
[2020-11-08] MEDS: LORazepam 1 MG TAB PO SCH (20:37)
[2020-11-08] MEDS: polyethylene glycoL 3350 17 GM POWD.PACK PO SCH (20:37)
[2020-11-09] MEDS: SODIUM CHLORIDE 0.9% 1,000 ML IV SCH ×3 (01:23→16:52)
[2020-11-09] MEDS: AZITHROMYCIN 500 MG TAB PO SCH (05:38)
[2020-11-09] MEDS: LEVOTHYROXINE 100 MCG TAB PO SCH (05:38)
[2020-11-09] MEDS: MELOXICAM 7.5 MG TAB PO SCH (08:00)
[2020-11-09] MEDS: FLUoxetine HCL 20 MG CAP PO SCH (08:00)
[2020-11-09] MEDS: PANTOPRAZOLE 40 MG TABLET PO SCH (08:00)
[2020-11-09] MEDS: busPIRone HCl 5 MG TAB PO SCH ×2 (08:01→15:24)
[2020-11-09] MEDS: ENOXAPARIN 40 MG/0.4 ML SYRINGE SQ SCH (08:01)
[2020-11-09] MEDS: HYDROXYCHLOROQUINE SULFATE 200 MG TAB PO SCH ×2 (08:02→20:35)
[2020-11-09] MEDS: predniSONE 5 MG TAB PO SCH (08:02)
[2020-11-09] MEDS: risperiDONE 0.5 MG TAB PO SCH ×2 (08:02→20:35)
[2020-11-09] MEDS: DOCUSATE ORAL SOLN 100 MG/10 ML CUP PO SCH ×2 (08:03→20:35)
[2020-11-09] MEDS: NON FORMULARY DRUG (Linaclotide [Linzess] 145 MCG Capsule) PO SCH (15:25)
[2020-11-09] MEDS: LORATADINE 10 MG TAB PO SCH (20:35)
[2020-11-09] MEDS: FAMOTIDINE 20 MG TAB PO SCH (20:35)
[2020-11-09] MEDS: polyethylene glycoL 3350 17 GM POWD.PACK PO SCH (20:35)
[2020-11-09] MEDS: busPIRone HCl 10 MG TAB PO SCH (20:35)
[2020-11-09] MEDS: LORazepam 1 MG TAB PO SCH (20:35)
[2020-11-10] MEDS: SODIUM CHLORIDE 0.9% 1,000 ML IV SCH ×2 (06:06→12:46)
[2020-11-10] MEDS: LEVOTHYROXINE 100 MCG TAB PO SCH (06:06)
[2020-11-10] MEDS: AZITHROMYCIN 500 MG TAB PO SCH (06:06)
[2020-11-10] MEDS: MELOXICAM 7.5 MG TAB PO SCH (08:04)
[2020-11-10] MEDS: DOCUSATE ORAL SOLN 100 MG/10 ML CUP PO SCH (08:04)
[2020-11-10] MEDS: FLUoxetine HCL 20 MG CAP PO SCH (08:05)
[2020-11-10] MEDS: busPIRone HCl 5 MG TAB PO SCH (08:05)
[2020-11-10] MEDS: PANTOPRAZOLE 40 MG TABLET PO SCH (08:05)
[2020-11-10] MEDS: risperiDONE 0.5 MG TAB PO SCH (08:05)
[2020-11-10] MEDS: HYDROXYCHLOROQUINE SULFATE 200 MG TAB PO SCH (08:05)
[2020-11-10] MEDS: predniSONE 5 MG TAB PO SCH (08:06)
[2020-11-10] MEDS: ENOXAPARIN 40 MG/0.4 ML SYRINGE SQ SCH (08:06)
[2020-11-10 08:37] VITALS: BP 119/82; PULSE 69; RESP 18; TEMP 97.9
--- NOTE | 2020-11-10 14:51 | P.PN ---
Subjective Progress Note Date: 11/08/20 Principal diagnosis: Bilateral pneumonia Acute hypoxic respiratory failure History of dementia and Alzheimer's disease GERD Advanced rheumatoid arthritis Failure to thrive and medical tablet daily 11/08/2020, patient seen eval examined awake and alert off of oxygen breathing comfortably patient has been getting broad-spectrum antibiotics tolerating very well follow clinical course closely This is a 70-year-old female she presented into the emergency department with the increasing shortness of breath, patient has bilateral pneumonia him a patient sent over here for IV antibiotics, her history significant for GERD, depression and mood disorder, hypothyroidism, dyslipidemia, dementia and Alzheimer's disease, and currently she is on 4 L oxygen with marginal blood pres sure, will do S x-ray and basic labs, Coreg 19 is negative Objective - Vital Signs Vital signs: Vital Signs Temp 97.5 F L 11/08/20 14:00 Pulse 82 11/08/20 14:00 Resp 20 11/08/20 14:00 BP 108/70 11/08/20 14:00 Pulse Ox 90 L 11/08/20 14:00 Intake & Output 11/07/20 11/08/20 11/08/20 18:59 06:59 18:59 Intake Total 100 Balance 100 Weight 82.554 kg Intake: Oral 100 Other: Voiding Method Incontinent Incontinent Incontinent # Voids 2 - Exam - Constitutional General appearance: average body habitus, disheveled - EENT Eyes: PERRLA Ears: bilateral: normal - Neck Carotids: bilateral: upstroke normal - Respiratory Respiratory: bilateral: diminished - Cardiovascular Heart sounds: normal: S1, S2 - Gastrointestinal General gastrointestinal: normal bowel sounds - Musculoskeletal Musculoskeletal: generalized weakness - Labs CBC & Chem 7: 11/07/20 16:09 11/07/20 16:09 Labs: Abnormal Lab Results - Last 24 Hours (Table) 11/07/20 11/07/20 11/08/20 Range/Units 16:09 16:09 05:00 WBC 19.9 H (3.8-10.6) k/uL RBC 3.71 L (3.80-5.40) m/uL Hgb 10.7 L (11.4-16.0) gm/dL Hct 33.0 L (34.0-46.0) % Neutrophils # 18.4 H (1.3-7.7) k/uL Lymphocytes # 0.7 L (1.0-4.8) k/uL BUN/Creatinine Ratio 25.00 H (12.00-20.00) Ratio Glucose 130 H (70-110) mg/dL Calcium 7.8 L (8.7-10.3) mg/dL Total Protein 5.9 L (6.2-8.2) g/dL Albumin 3.30 L (3.80-4.90) g/dL Albumin/Globulin Ratio 1.27 L (1.60-3.17) g/dL Urine Protein 1+ H (Negative) Urine Mucus Rare H (None) /hpf Microbiology - Last 24 Hours (Table) 11/07/20 08:02 Blood Culture - Preliminary Blood No Growth after 24 hours 11/07/20 06:09 Blood Culture - Preliminary Blood No Growth after 24 hours Assessment and Plan Assessment: Bilateral pneumonia Acute hypoxic respiratory failure History of dementia and Alzheimer's disease GERD Advanced rheumatoid arthritis Failure to thrive and medical tablet daily Plan: Patient is being started on broad-spectrum antibiotics gentle rehydration will repeat and labs and chest x-ray Time with Patient: Less than 30
--- NOTE | 2020-11-10 14:52 | P.PN ---
Subjective Progress Note Date: 11/09/20 Principal diagnosis: Bilateral pneumonia Acute hypoxic respiratory failure History of dementia and Alzheimer's disease GERD Advanced rheumatoid arthritis Failure to thrive and medical tablet daily 11/08/2020, patient seen eval examined respiratory status remained stable off of oxygen breathing comfortably likely will be discharged next 24-48 hours 11/08/2020, patient seen eval examined awake and alert off of oxygen breathing comfortably patient has been getting broad-spectrum antibiotics tolerating very well follow clinical course closely This is a 70-year-old female she presented into the emergency department with the increasing shortness of breath, patient has bilateral pneumonia him a patient sent over here for IV antibiotics, her history significant for GERD, depression and mood disorder, hypothyroidism, dyslipidemia, dementia and Alzheimer's disease, and currently she is on 4 L oxygen with marginal blood pressure, will do S x-ray and basic labs, Coreg 19 is negative Objective - Vital Signs Vital signs: Vital Signs Temp 98.5 F 11/09/20 05:24 Pulse 69 11/09/20 05:24 Resp 20 11/09/20 05:24 BP 121/53 11/09/20 05:24 Pulse Ox 98 11/09/20 05:24 Intake & Output 11/08/20 11/09/20 11/09/20 18:59 06:59 18:59 Intake Total 300 Output Total 300 Balance -300 300 Intake: Oral 300 Output: Urine 300 Other: Voiding Method Incontinent Incontinent Incontinent # Voids 1 2 # Bowel Movements 1 - Exam - Constitutional General appearance: average body habitus, disheveled - EENT Eyes: PERRLA Ears: bilateral: normal - Neck Carotids: bilateral: upstroke normal - Respiratory Respiratory: bilateral: diminished - Cardiovascular Heart sounds: normal: S1, S2 - Gastrointestinal General gastrointestinal: normal bowel sounds - Musculoskeletal Musculoskeletal: generalized weakness - Labs CBC & Chem 7: 11/07/20 16:09 11/07/20 16:09 Labs: Microbiology - Last 24 Hours (Table) 11/07/20 08:02 Blood Culture - Preliminary Blood No Growth after 48 hours 11/07/20 06:09 Blood Culture - Preliminary Blood No Growth after 48 hours Assessment and Plan Assessment: Bilateral pneumonia Acute hypoxic respiratory failure History of dementia and Alzheimer's disease GERD Advanced rheumatoid arthritis Failure to thrive and medical tablet daily Plan: Patient is being started on broad-spectrum antibiotics gentle rehydration will repeat and labs and chest x-ray Time with Patient: Greater than 30
--- NOTE | 2020-11-10 14:56 | P.DS ---
Providers Date of admission: 11/07/20 05:50 Expected date of discharge: 11/10/20 Attending physician: Fred Canales Primary care physician: [facility] Course: 11/10/2019 patient seen eval examined overall respiratory status remains stable remains on room air care plan discussed with the staff nurse prescription has been provided patient is a resident of assisted will discharge later on today 11/09/2019, patient seen eval examined respiratory status remained stable off of oxygen breathing comfortably likely will be discharged next 24-48 hours 11/08/2020, patient seen eval examined awake and alert off of oxygen breathing comfortably patient has been getting broad-spectrum antibiotics tolerating very well follow clinical course closely This is a 70-year-old female she presented into the emergency department with the increasing shortness of breath, patient has bilateral pneumonia him a patient sent over here for IV antibiotics, her history significant for GERD, depression and mood disorder, hypothyroidism, dyslipidemia, dementia and Alzheimer's disease, and currently she is on 4 L oxygen with marginal blood pressure, will do S x-ray and basic labs, Coreg 19 is negative Assessment: Bilateral pneumonia Acute hypoxic respiratory failure History of dementia and Alzheimer's disease GERD Advanced rheumatoid arthritis Failure to thrive and medical debility Patient Condition at Discharge: Fair Plan - Discharge Summary Discharge Rx Participant: No New Discharge Prescriptions: Continue polyethylene glycoL 3350 [Miralax] 17 gm PO HS@1999 risperiDONE [RisperDAL] 0.5 mg PO BID@0700,2000 Omeprazole [PriLOSEC] 20 mg PO BID@0700,1600 Meloxicam [Mobic] 15 mg PO DAILY@0700 Cetirizine HCl [Zyrtec] 10 mg PO HS@1999 Linaclotide [Linzess] 145 mcg PO DAILY@1600 Levothyroxine Sodium [Synthroid] 100 mcg PO AC-BRKFST@0530 FLUoxetine HCL [PROzac] 40 mg PO DAILY@0700 busPIRone HCL 30 mg PO HS@2000 busPIRone HCL 15 mg PO BID@0700,1600 predniSONE 5 mg PO DAILY@0700 Famotidine 20 mg PO HS@2000 Docusate Oral Soln [Colace Oral Soln] 100 mg PO BID@0700,2000 Carbamide Peroxide [Debrox Otic] 3 - 5 drops BOTH EARS DIRECTED Cranberry 300mg 1 tab PO AC-BID Hydroxychloroquine Sulfate [Plaquenil] 200 mg PO BID@699,1999 LORazepam [Ativan] 2 mg PO HS Discharge Medication List Omeprazole [PriLOSEC] 20 mg PO BID@0700,1600 01/15/16 [History] polyethylene glycoL 3350 [Miralax] 17 gm PO HS@199901/15/16 [History] risperiDONE [RisperDAL] 0.5 mg PO BID@699,199901/15/16 [History] Cetirizine HCl [Zyrtec] 10 mg PO HS@199912/06/17 [History] Linaclotide [Linzess] 145 mcg PO DAILY@159912/06/17 [History] Meloxicam [Mobic] 15 mg PO DAILY@69912/06/17 [History] FLUoxetine HCL [PROzac] 40 mg PO DAILY@69910/29/19 [History] Levothyroxine Sodium [Synthroid] 100 mcg PO AC-BRKFST@52910/29/19 [History] busPIRone HCL 15 mg PO BID@0700,159910/29/19 [History] busPIRone HCL 30 mg PO HS@199910/29/19 [History] Carbamide Peroxide [Debrox Otic] 3 - 5 drops BOTH EARS DIRECTED 07/09/20 [History] Docusate Oral Soln [Colace Oral Soln] 100 mg PO BID@07,199907/09/20 [History] Famotidine 20 mg PO HS@199907/09/20 [History] predniSONE 5 mg PO DAILY@69907/09/20 [History] Cranberry 300mg 1 tab PO AC-BID 11/07/20 [History] Hydroxychloroquine Sulfate [Plaquenil] 200 mg PO BID@07,199911/07/20 [History] LORazepam [Ativan] 2 mg PO HS 11/07/20 [History] Follow up Appointment(s)/Referral(s): Alcides Goyal MD [Primary Care Provider] - 1-2 days Patient Instructions/Handouts: Pneumonia (DC) Activity/Diet/Wound Care/Special Instructions: Caregiver will transport on discharge, please call #[phone]. Paper prescription for Ceftin 250mg one by mouth, twice a day, for 5 days. Discharge Disposition: OTHER INSTITUTION NOT DEFINED
== END 2020-11-10 15:17 | disposition home or self-care (01) | DRG 193 ==
LOC: EC 05:45 → 4SSUR 05:50
PROVIDERS: ADMIT Internal Medicine Sleep Medicine; ATTEND Internal Medicine Sleep Medicine
DX: J18.9 Pneumonia, unspecified organism (principal); J96.01 Acute respiratory failure with hypoxia; I47.1 Supraventricular tachycardia; F73 Profound intellectual disabilities; G30.9 Alzheimer's disease, unspecified; F02.80 Dementia in other diseases classified elsewhere, unspecified severity, without behavioral disturbance, psychotic disturbance, mood disturbance, and anxiety; E86.0 Dehydration; E78.5 Hyperlipidemia, unspecified; E03.9 Hypothyroidism, unspecified; K21.9 Gastro-esophageal reflux disease without esophagitis; M06.9 Rheumatoid arthritis, unspecified; R62.7 Adult failure to thrive; Z79.1 Long term (current) use of non-steroidal anti-inflammatories (NSAID); Z79.890 Hormone replacement therapy; Z79.899 Other long term (current) drug therapy; Z20.822 Contact with and (suspected) exposure to COVID-19; Z82.49 Family history of ischemic heart disease and other diseases of the circulatory system; Z91.81 History of falling; Z99.3 Dependence on wheelchair; H26.9 Unspecified cataract; Z87.01 Personal history of pneumonia (recurrent); I08.1 Rheumatic disorders of both mitral and tricuspid valves; R13.10 Dysphagia, unspecified; Z96.651 Presence of right artificial knee joint
CPT/HCPCS: 71045; 80053; 81001; 85025; 87040; 87635; 96365; 99285

== ENCOUNTER 2021-01-06 13:00 | Inpatient (IN) | payer MEDICARE, OTHER ==
[2021-01-06] MEDS ORDERED: SODIUM CHLORIDE 0.9% 1,000 ML IV STA (13:21)
--- NOTE | 2021-01-06 13:24 | ED ---
General Adult HPI - General Chief complaint: Weakness Stated complaint: lethargic Time Seen by Provider: 01/06/21 13:09 Source: RN notes reviewed, Caregiver Mode of arrival: wheelchair Limitations: altered mental status - History of Present Illness Initial comments: Patient is a pleasant 70-year-old female presenting to the emergency department with concerns for fatigue. Patient was diagnosed with pneumonia 5 days ago. Patient has been coughing some. Occasionally spitting up. Patient has seemed more drowsy and fatigued. Patient is a poor historian and does not provide any additional history. 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 No fevers. - Related Data Home Medications Medication Instructions Recorded Confirmed Omeprazole [PriLOSEC] 20 mg PO BID@0700,159901/15/16 01/06/21 polyethylene glycoL 3350 [Miralax] 1 tsp PO HS@159901/15/16 01/06/21 risperiDONE [RisperDAL] 0.5 mg PO BID@0700,199901/15/16 01/06/21 Cetirizine HCl [Zyrtec] 10 mg PO HS@199912/06/17 01/06/21 Linaclotide [Linzess] 145 mcg PO DAILY@159912/06/17 01/06/21 Meloxicam [Mobic] 15 mg PO DAILY@0700 12/06/17 01/06/21 FLUoxetine HCL [PROzac] 40 mg PO DAILY@0700 10/29/19 01/06/21 Levothyroxine Sodium [Synthroid] 100 mcg PO AC-BRKFST@0530 10/29/19 01/06/21 busPIRone HCL 15 mg PO BID@0700,1600 10/29/19 01/06/21 busPIRone HCL 30 mg PO HS@199910/29/19 01/06/21 Carbamide Peroxide [Debrox Otic] 3 - 5 drops BOTH EARS DIRECTED 07/09/20 01/06/21 Docusate Oral Soln [Colace Oral 100 mg PO BID@0700,199907/09/20 01/06/21 Soln] Famotidine 20 mg PO HS@199907/09/20 01/06/21 predniSONE 5 mg PO DAILY@0700 07/09/20 01/06/21 Cranberry 300mg 1 tab PO AC-BID 11/07/20 01/06/21 Hydroxychloroquine Sulfate 200 mg PO BID@11/07/20 01/06/21 [Plaquenil] Azithromycin [Zithromax Z-pack (6 See Taper PO DIRECTED 01/06/21 01/06/21 tabs)] Cefdinir 300 mg PO BID@699,199901/06/21 01/06/21 Allergies Allergy/AdvReac Type Severity Reaction Status Date / Time laundry detergent Allergy Unknown Rash/Hives Uncoded 01/06/21 13:45 Review of Systems ROS Statement: Those systems with pertinent positive or pertinent negative responses have been documented in the HPI. ROS Other: All systems not noted in ROS Statement are negative. Constitutional: Denies: fever Respiratory: Reports: cough Endocrine: Reports: fatigue Past Medical History Past Medical History: Eye Disorder, GERD/Reflux, Hyperlipidemia, Memory Impairment, Pneumonia, Rheumatoid Arthritis (RA) Additional Past Medical History / Comment(s): Profound mentally challenged/cognitive delay-pt is unable to talk but understands alot of what is being said, nonambulatory/wheelchair bound, atrial tachycardia, cardiomegaly, trace mitral and tricuspid regurgitation, lymphedema bilateral legs/feet, dys phagia-pt is to be fed/ground chopped with moisture/supervision, pneumonias/hypoxia, pneumonia with sepsis/septic shock, R eye cataract, hypothyroidism, spastic tortuous sigmoid colon, mild chronic gastritis, frequent constipation, right knee bursitis, bilateral knee and hip pain, past pressure sore of right heel, iliotibial band syndrome right leg, history of falls, constipation, past R radial fracture, R hip bursitis. History of Any Multi-Drug Resistant Organisms: None Reported Past Surgical History: Joint Replacement, Orthopedic Surgery Additional Past Surgical History / Comment(s): Total R knee then pt fell/joint became infected, D&C, colonoscopy/EGD, pins L hand, L WRIST SCREWS, L THUMB SURGERY, 6 TEETH REMOVED Past Anesthesia/Blood Transfusion Reactions: No Reported Reaction Past Psychological History: Anxiety, Depression Smoking Status: Never smoker - Past Family History Mother Family Medical History: Coronary Artery Disease (CAD) Additional Family Medical History / Comment(s): Mother is still living. General Exam Limitations: no limitations General appearance: alert, in no apparent distress Head exam: Present: atraumatic Eye exam: Present: normal appearance ENT exam: Present: other (Poor dentition) Neck exam: Present: normal inspection Respiratory exam: Present: rhonchi Cardiovascular Exam: Present: regular rate, normal rhythm GI/Abdominal exam: Present: soft. Absent: tenderness Extremities exam: Present: normal inspection Neurological exam: Present: alert Psychiatric exam: Present: normal affect, normal mood Skin exam: Present: normal color Course Vital Signs 01/06/21 13:03 Temperature 99.6 F Pulse Rate 76 Respiratory 24 Rate Blood Pressure 103/62 O2 Sat by Pulse 92 L Oximetry Medical Decision Making - Medical Decision Making Patient reevaluated and resting comfortably in bed. Flamer After Lasting updated. Case was discussed with Dr. block, who will admit covered for Dr. Kenneth urias, who admits for Dr. Goyal. There is still some concern for carotid virus. Testing still pending. O2 sat 92% - Lab Data Result diagrams: 01/06/21 14:24 01/06/21 14:24 Lab Results 01/06/21 01/06/21 Range/Units 14:24 14:24 WBC 7.5 (3.8-10.6) k/uL RBC 3.98 (3.80-5.40) m/uL Hgb 11.0 L (11.4-16.0) gm/dL Hct 33.8 L (34.0-46.0) % MCV 85.1 (80.0-100.0) fL MCH 27.8 (25.0-35.0) pg MCHC 32.7 (31.0-37.0) g/dL RDW 14.7 (11.5-15.5) % Plt Count 291 (150-450) k/uL MPV 7.3 Neutrophils % 77 % Lymphocytes % 15 % Monocytes % 3 % Eosinophils % 3 % Basophils % 0 % Neutrophils # 5.8 (1.3-7.7) k/uL Lymphocytes # 1.1 (1.0-4.8) k/uL Monocytes # 0.2 (0-1.0) k/uL Eosinophils # 0.2 (0-0.7) k/uL Basophils # 0.0 (0-0.2) k/uL Sodium 138 (137-145) mmol/L Potassium 5.3 H (3.5-5.1) mmol/L Chloride 103 (98-107) mmol/L Carbon Dioxide 30 (22-30) mmol/L Anion Gap 5 mmol/L BUN 16 (7-17) mg/dL Creatinine 0.85 (0.52-1.04) mg/dL Est GFR (CKD-EPI)AfAm 80 (>60 ml/min/1.73 sqM) Est GFR (CKD-EPI)NonAf 69 (>60 ml/min/1.73 sqM) Glucose 90 (74-99) mg/dL Calcium 9.2 (8.4-10.2) mg/dL Magnesium 2.3 (1.6-2.3) mg/dL Total Bilirubin 0.5 (0.2-1.3) mg/dL AST 35 (14-36) U/L ALT 19 (4-34) U/L Alkaline Phosphatase 67 (38-126) U/L Total Protein 7.2 (6.3-8.2) g/dL Albumin 3.7 (3.5-5.0) g/dL - Radiology Data Interpreted by me: Chest x-ray does show some bilateral interstitial changes Disposition Clinical Impression: Pneumonia Disposition: ADMITTED IP TO THIS HOSP Is patient prescribed a controlled substance at d/c from ED?: No Referrals: Alcides Goyal MD [Primary Care Provider] - 1-2 days Decision Time: 14:49
[2021-01-06 14:29] LABS: Basophils % (A) 0 %; Eosinophils # (A) 0.2 k/uL (0-0.7); Eosinophils % (A) 3 %; HCT 33.8 % (34.0-46.0); Lymphocytes # (A) 1.1 k/uL (1.0-4.8); Lymphocytes % (A) 15 %; MCH 27.8 pg (25.0-35.0); MCHC 32.7 g/dL (31.0-37.0); MCV 85.1 fL (80.0-100.0); Mean Platelet Volume 7.3; Monocytes # (A) 0.2 k/uL (0-1.0); Monocytes % (A) 3 %; Neutrophils # (A) 5.8 k/uL (1.3-7.7); Neutrophils % (A) 77 %; Platelet Count 291 k/uL (150-450); RBC 3.98 m/uL (3.80-5.40); RDW 14.7 % (11.5-15.5); WBC 7.5 k/uL (3.8-10.6)
[2021-01-06 14:41] LABS: Albumin 3.7 g/dL (3.5-5.0); Calcium 9.2 mg/dL (8.4-10.2); Magnesium 2.3 mg/dL (1.6-2.3); Potassium 5.3 mmol/L (3.5-5.1); Total Bilirubin 0.5 mg/dL (0.2-1.3); Total Protein 7.2 g/dL (6.3-8.2)
[2021-01-06] MEDS ORDERED: AZITHROMYCIN 500 MG in SODIUM CHLORIDE 0.9% 250 ML IVPB STA (14:50)
[2021-01-06] MEDS ORDERED: PNEUMONIA PROTOCOL UTILIZED 1 EACH MISC PO PRN (14:50)
[2021-01-06] MEDS ORDERED: IPRATROPIUM-ALBUTEROL 3 ML NEB INHALATION PRN ×2 (14:50→20:10)
--- NOTE | 2021-01-06 14:59 | XR ---
EXAMINATION TYPE: XR chest 2V DATE OF EXAM: 01/06/2021 COMPARISON: 11/08/2020 HISTORY: Weakness. Lethargy. There is pulmonary interstitial and airspace edema. Heart is borderline enlarged. Thoracic aorta is atheromatous. There is no definite pleural effusion. IMPRESSION: There is new pulmonary interstitial edema compared to old exam that could be acute heart failure. RDS is possible.
[2021-01-06 15:38] LABS: INR 0.9 (<1.2); Prothrombin Time 9.8 sec (9.0-12.0)
[2021-01-06] MEDS: SODIUM CHLORIDE 0.9% 1,000 ML IV SCH (18:07)
[2021-01-06] MEDS: FAMOTIDINE 20 MG TAB PO SCH (20:07)
[2021-01-06] MEDS: LORATADINE 10 MG TAB PO SCH (20:07)
[2021-01-06] MEDS: HYDROXYCHLOROQUINE SULFATE 200 MG TAB PO SCH (20:07)
[2021-01-06] MEDS: busPIRone HCl 10 MG TAB PO SCH (20:07)
[2021-01-06] MEDS: risperiDONE 0.5 MG TAB PO SCH (20:07)
[2021-01-06] MEDS: DOCUSATE ORAL SOLN 100 MG/10 ML CUP PO SCH (20:07)
[2021-01-06] MEDS ORDERED: VANCOMYCIN IV PER PHARMACY 1 EACH MISC MISCELLANE PRN (20:10)
[2021-01-06] MEDS ORDERED: VANCOMYCIN 1,500 MG in SODIUM CHLORIDE 0.9% 250 ML IVPB ONE (20:30)
--- NOTE | 2021-01-06 21:24 | HP ---
HISTORY AND PHYSICAL DATE OF SERVICE: 01/06/2021. CHIEF COMPLAINT: Weakness and pneumonia. HISTORY OF PRESENT ILLNESS: This 70-year-old woman with a past medical history of multiple medical problems including history of GERD, hyperlipidemia, memory impairment, pneumonia, rheumatoid arthritis, being followed by Dr. Goyal in the outpatient setting was living in an [facility] home apparently in [facility]. The patient was recently admitted with bilateral pneumonia. Currently the patient is complaining of weakness. The patient apparently diagnosed with pneumonia 5 days ago. The patient was living in a [facility] home. The patient was referred to [facility] and was admitted for further evaluation and treatment. A chest x-ray, which was done in the emergency room, which I reviewed personally showed bilateral pneumonia, right more than the left. The INR 0.9 and the COVID-19 rapid test is negative. Potassium 5.3. The patient is unable to give a coherent history, but patient opens eyes to queries. PAST MEDICAL HISTORY: History of GERD, hyperlipidemia, history of recent pneumonia, rheumatoid arthritis. MEDICATIONS: Home medications are MiraLAX, cefdinir, Zithromax, cranberry, prednisone, Plaquenil, Linzess, Synthroid, Colace, Zyrtec, Risperdal, buspirone, omeprazole, meloxicam, and fluoxetine. ALLERGIES: LAUNDRY DETERGENT. FAMILY HISTORY: History of coronary artery disease. SOCIAL HISTORY: Could not be taken. REVIEW OF SYSTEMS: Could not be taken because of change in mental status. PHYSICAL EXAMINATION: Patient is stuporous. Pulse 63, blood pressure 119/60, respiration 18, temperature 97.2, pulse ox 86 percent on room air. HEENT: Conjunctivae normal. NECK: No JVD. CARDIOVASCULAR: S1, S2 muffled. RESPIRATION: Breath sounds diminished in the bases. A few scattered rhonchi and crackles. ABDOMEN: Soft, nontender. LEGS: Minimal bilateral leg swelling. NERVOUS SYSTEM: Diffusely weak. SKIN: No ulcers, rashes or bleeding. JOINTS: No active deforming arthropathy. LABS: At this time shows WBC 7.2, hemoglobin 11, sodium 130, potassium 5.3. ASSESSMENT: 1. Acute bilateral pneumonia, possibly gram-negative pneumonia, possibly hospital acquired pneumonia with possible sepsis. 2. Change in mental status, metabolic encephalopathy secondary to pneumonia. 3. Anemia. 4. History of gastroesophageal reflux disease. 5. Hyperlipidemia. 6. History of memory impairment. 7. History of pneumonia. 8. History of rheumatoid arthritis. 9. Wheelchair bound. 10.History of atrial tachycardia. 11.History of dysphagia. 12.History of sepsis. 13.History of hypothyroidism. 14.History of degenerative joint disease. 15.Anxiety, depression. 16.History of psychotic disease. 17.History of mentally challenged. 18.FULL CODE. RECOMMENDATIONS AND DISCUSSION: This 70-year-old woman who presented with multiple complex medical issues, we will monitor the patient closely. We will initiate broad-spectrum IV antibiotics, resume the home medications, bronchodilators. Also Covid-19 testing has been requested PCR and also basic labs also requested. The prognosis extremely guarded. Further recommendations to follow. A copy of dictation being forwarded to Dr. Goyal who is the primary physician. ROSA / KANE: [id number] / MTDD
[2021-01-06 23:08] LABS: C Reactive Protein 5.8 mg/dL (0.0-0.8)
[2021-01-06 23:11] LABS: Ferritin 54.4 ng/mL (10.0-291.0)
[2021-01-06] MEDS: HEPARIN SODIUM,PORCINE 5,000 UNIT/ML 1 ML VIAL SQ SCH (23:23)
--- NOTE | 2021-01-07 00:22 | CT ---
EXAMINATION TYPE: CT angio chest DATE OF EXAM: 01/07/2021 COMPARISON: None HISTORY: positive d-dimer CT DLP: 556.1 mGycm Automated exposure control for dose reduction was used. CONTRAST: Performed with IV Contrast, patient injected with 60ml given mL of Isovue 370. There are 3-D post processed images. There is patchy airspace infiltrate in the right upper lobe and right lower lobe. There is similar pa tchy infiltrate in the left lung base. Thoracic aorta is atheromatous. There is no aneurysm or dissection. The ascending aorta measures 2.8 cm. Heart size is normal. There is no pericardial effusion. There is no mediastinal adenopathy. There are no hilar masses. There is normal contrast opacification of the pulmonary arteries. There ar e no filling defects. There are a few bronchial bilateral lymph nodes that measure up to 1 cm. The thoracic spine is intact. There is no compression fracture. IMPRESSION: No evidence of pulmonary embolism. Bilateral patchy pulmonary infiltrates consistent with pneumonia. There are a few bronchial lymph nod es probably inflammatory.
[2021-01-07 03:48] LABS: Appearance,Urine Clear (Clear); Bilirubin,Urine Negative (Negative); Blood,Urine Negative (Negative); Color,Urine Yellow; Glucose,Urine (UA) Negative (Negative); Ketones,Urine Negative (Negative); Leukocyte Esterase,Urine Negative (Negative); Nitrite,Urine Negative (Negative); Protein,Urine Trace (Negative); Specific Gravity,Urine 1.016 (1.001-1.035); Urobilinogen,Urine <2.0 mg/dL (<2.0)
[2021-01-07] MEDS: SODIUM CHLORIDE 0.9% 1,000 ML IV SCH ×2 (05:01→21:52)
[2021-01-07] MEDS: LEVOTHYROXINE 100 MCG TAB PO SCH (05:58)
[2021-01-07] MEDS ORDERED: predniSONE 5 MG TAB PO SCH (07:00)
[2021-01-07] MEDS ORDERED: CRANBERRY 300 MG PO SCH (07:30)
[2021-01-07] MEDS: IPRATROPIUM-ALBUTEROL 3 ML NEB INHALATION SCH ×4 (07:55→19:36)
--- NOTE | 2021-01-07 08:01 | XR ---
EXAMINATION TYPE: XR chest 1V portable DATE OF EXAM: 01/07/2021 Comparison: 01/06/2021 Clinical History: 70-year-old female pneumonia Findings: Heart borderline in size. Elongation/ectasia of the thoracic aorta. Patchy bilateral interstitial opa cities. Appearance relatively unchanged. No pleural effusion. Impression: 1. Borderline heart size. Similar tortuous/ectatic thoracic aorta. 2. Continued bilateral patchy interstitial infiltrates.
[2021-01-07] MEDS: PANTOPRAZOLE 40 MG TABLET PO SCH (08:51)
[2021-01-07] MEDS: busPIRone HCl 5 MG TAB PO SCH ×2 (08:51→16:15)
[2021-01-07] MEDS: HEPARIN SODIUM,PORCINE 5,000 UNIT/ML 1 ML VIAL SQ SCH ×3 (08:51→23:08)
[2021-01-07] MEDS: FLUoxetine HCL 20 MG CAP PO SCH (08:51)
[2021-01-07] MEDS: risperiDONE 0.5 MG TAB PO SCH ×2 (08:51→20:14)
[2021-01-07] MEDS: HYDROXYCHLOROQUINE SULFATE 200 MG TAB PO SCH ×2 (08:52→20:14)
[2021-01-07] MEDS: AZITHROMYCIN 500 MG TAB PO SCH (08:52)
[2021-01-07] MEDS: DOCUSATE ORAL SOLN 100 MG/10 ML CUP PO SCH ×2 (08:52→20:14)
[2021-01-07 11:03] LABS: Basophils # (A) 0.03 X 10*3/uL (0.00-0.10); Basophils % (A) 0.5 %; Eosinophils # (A) 0.19 X 10*3/uL (0.04-0.35); Eosinophils % (A) 3.1 %; HCT 31.4 % (37.2-46.3); HGB 9.4 g/dL (12.0-15.0); Lymphocytes # (A) 1.79 X 10*3/uL (0.90-5.00); Lymphocytes % (A) 29.2 %; MCHC 29.9 g/dL (32.0-37.0); MCV 90.2 fL (80.0-97.0); Mean Platelet Volume 10.7 fL (9.5-12.2); Monocytes # (A) 0.81 X 10*3/uL (0.20-1.00); Monocytes % (A) 13.2 %; Neutrophils # (A) 3.29 X 10*3/uL (1.80-7.70); Neutrophils % (A) 53.7 %; Platelet Count 259 X 10*3/uL (140-440); RBC 3.48 X 10*6/uL (4.10-5.20); RDW 15.2 % (11.5-14.5); WBC 6.13 X 10*3/uL (4.50-10.00)
[2021-01-07 11:33] LABS: Anion Gap 4.2 mmol/L (4.00-12.00); Calcium 8.6 mg/dL (8.7-10.3); Carbon Dioxide 28.8 mmol/L (21.6-31.8); Non-African American GFR(CKD) 74.2 (60.0-200.0); Potassium 4.5 mmol/L (3.5-5.5)
--- NOTE | 2021-01-07 12:16 | P.CNPUL ---
History of Present Illness Consult date: 01/07/21 Reason for consult: dyspnea, cough, pneumonia Chief complaint: Generalized weakness shortness of breath History of present illness: This patient is a 70-year-old came into the hospital with generalized fatigue slight more drowsiness than baseline data obtained from the chart mainly as patient cannot give a detailed history due to component of developmental delay, it seems like patient has a history of pneumonia about a week ago has been coughing lately has been more short of breath came into the hospital, her past medical history significant for dyslipidemia, dementia exam is disease rheumatoid arthritis, arrival she was noted to have a low-grade temperature, chest x-ray shows bilateral infiltrates with interstitial dominance, CT scan of the chest confirms similar finding however negative for pulmonary embolism, covert testing is negative however inflammatory parameters are elevated including C-reactive protein, d-dimer, and sed rate, currently patient is being treated with the bronchodilators along with oral Zithromax and continuation of home medications including oral 5 mg prednisone Review of Systems ROS unobtainable: due to mental status Past Medical History Past Medical History: Eye Disorder, GERD/Reflux, Hyperlipidemia, Memory Impairment, Pneumonia, Rheumatoid Arthritis (RA) Additional Past Medical History / Comment(s): Profound mentally challenged/cognitive delay-pt is unable to talk but understands alot of what is being said, nonambulatory/wheelchair bound, atrial tachycardia, cardiomegaly, trace mitral and tricuspid regurgitation, lymphedema bilateral legs/feet, dysphagia-pt is to be fed/ground chopped with moisture/supervision, pneumonias/hypoxia, pneumonia with sepsis/septic shock, R eye cataract, hypothyroidism, spastic tortuous sigmoid colon, mild chronic gastritis, frequent constipation, right knee bursitis, bilateral knee and hip pain, past pressure sore of right heel, iliotibial band syndrome right leg, history of falls, constipation, past R radial fracture, R hip bursitis. History of Any Multi-Drug Resistant Organisms: None Reported Past Surgical History: Joint Replacement, Orthopedic Surgery Additional Past Surgical History / Comment(s): Total R knee then pt fell/joint became infected, D&C, colonoscopy/EGD, pins L hand, L WRIST SCREWS, L THUMB SURGERY, 6 TEETH REMOVED Past Anesthesia/Blood Transfusion Reactions: No Reported Reaction Past Psychological History: Anxiety, Depression Additional Psychological History / Comment(s): Psychotic disease. Pt resides at [facility]. She is profoundly mentally challenged. She is nonambulatory- needs 2 assist to wheelchair, staff feed pt-ground/chopped moistened food-if placed on baby spoon pt can put food in her mouth. She likes her baby doll and coloring and watching funny shows on tv. She is rub her skin and chew her fingers/staff mentions she may need hand coverings. Smoking Status: Never smoker Past Alcohol Use History: Unable to Obtain Past Drug Use History: Unable to Obtain - Past Family History Mother Family Medical History: Coronary Artery Disease (CAD) Additional Family Medical History / Comment(s): Mother is still living. Medications and Allergies Home Medications Medication Instructions Recorded Confirmed Type Omeprazole [PriLOSEC] 20 mg PO BID@0700,159901/15/16 01/06/21 History polyethylene glycoL 3350 [Miralax] 1 tsp PO HS@159901/15/16 01/06/21 History risperiDONE [RisperDAL] 0.5 mg PO BID@0700,199901/15/16 01/06/21 History Cetirizine HCl [Zyrtec] 10 mg PO HS@199912/06/17 01/06/21 History Linaclotide [Linzess] 145 mcg PO DAILY@159912/06/17 01/06/21 History Meloxicam [Mobic] 15 mg PO DAILY@0700 12/06/17 01/06/21 History FLUoxetine HCL [PROzac] 40 mg PO DAILY@0700 10/29/19 01/06/21 History Levothyroxine Sodium [Synthroid] 100 mcg PO AC-BRKFST@0530 10/29/19 01/06/21 History busPIRone HCL 15 mg PO BID@0700,1600 10/29/19 01/06/21 History busPIRone HCL 30 mg PO HS@199910/29/19 01/06/21 History Carbamide Peroxide [Debrox Otic] 3 - 5 drops BOTH EARS DIRECTED 07/09/20 01/06/21 History Docusate Oral Soln [Colace Oral 100 mg PO BID@0700,199907/09/20 01/06/21 History Soln] Famotidine 20 mg PO HS@199907/09/20 01/06/21 History predniSONE 5 mg PO DAILY@0700 07/09/20 01/06/21 History Cranberry 300mg 1 tab PO AC-BID 11/07/20 01/06/21 History Hydroxychloroquine Sulfate 200 mg PO BID@699,199911/07/20 01/06/21 History [Plaquenil] Azithromycin [Zithromax Z-pack (6 See Taper PO DIRECTED 01/06/21 01/06/21 History tabs)] Cefdinir 300 mg PO BID@699,199901/06/21 01/06/21 History Allergies Allergy/AdvReac Type Severity Reaction Status Date / Time laundry detergent Allergy Unknown Rash/Hives Uncoded 01/06/21 13:45 Physical Exam Vitals: Vital Signs Temp Pulse Pulse Pulse Resp BP BP 01/07/21 08:08 68 01/07/21 08:00 96.5 F L 66 66 16 01/07/21 03:22 97.5 F L 71 16 01/06/21 20:00 63 18 01/06/21 19:39 97.1 F L 64 17 01/06/21 16:30 97.6 F 63 18 116/69 01/06/21 16:23 18 01/06/21 16:00 01/06/21 15:18 65 16 141/77 01/06/21 13:03 99.6 F 76 24 103/62 BP Pulse Ox 01/07/21 08:08 01/07/21 08:00 131/87 99 01/07/21 03:22 118/76 95 01/06/21 20:00 01/06/21 19:39 122/74 97 01/06/21 16:30 94 L 01/06/21 16:23 01/06/21 16:00 94 L 01/06/21 15:18 94 L 01/06/21 13:03 92 L Intake and Output 01/06/21 01/07/21 01/07/21 22:59 06:59 14:59 Intake Total 240 600 240 Output Total 375 Balance 240 600 -135 Intake: Intake, IV Titration 600 Amount Sodium Chloride 0.9% 1, 600 000 ml @ 50 mls/hr IV . Q20H [facility] Rx#:[id number] Oral 240 240 Output: Urine 375 Other: Voiding Method Incontinent Incontinent External Catheter External Catheter # Voids 1 Weight 78.925 kg - Constitutional General appearance: average body habitus, disheveled - EENT Eyes: PERRLA Ears: bilateral: normal - Neck Carotids: bilateral: upstroke normal Thyroid: bilateral: normal size - Respiratory Respiratory: bilateral: diminished - Cardiovascular Rhythm: regular Heart sounds: normal: S1, S2 - Musculoskeletal Musculoskeletal: generalized weakness, strength equal bilaterally Results - Laboratory Findings CBC and BMP: 01/07/21 06:12 01/07/21 06:12 PT/INR, D-dimer PT 9.8 sec (9.0-12.0) 01/06/21 15:04 INR 0.9 (<1.2) 01/06/21 15:04 D-Dimer 3.59 mg/L FEU (<0.60) H 01/06/21 19:48 Abnormal lab findings: Abnormal Labs 01/06/21 01/06/21 01/06/21 14:24 14:24 19:48 RBC Hgb 11.0 L Hct 33.8 L MCHC RDW ESR D-Dimer 3.59 H Potassium 5.3 H Calcium C-Reactive Protein Urine Protein 01/06/21 01/06/21 01/07/21 19:48 19:48 03:00 RBC Hgb Hct MCHC RDW ESR 63 H D-Dimer Potassium Calcium C-Reactive Protein 5.8 H Urine Protein Trace H 01/07/21 01/07/21 06:12 06:12 RBC 3.48 L Hgb 9.4 L Hct 31.4 L MCHC 29.9 L RDW 15.2 H ESR D-Dimer Potassium Calcium 8.6 L C-Reactive Protein Urine Protein - Diagnostic Findings Chest x-ray: report reviewed, image reviewed CT scan - chest: report reviewed, image reviewed (Finding as noted above) Assessment and Plan Assessment: Altered mental status likely related to pneumonia Atypical pneumonia Advanced rheumatoid arthritis Developmental delay Hypothyroidism Plan: Broad-spectrum antibiotics, IV steroids Continue bronchodilator Follow clinical course closely further recommendations pending plan of care as per clinical response of patient Time with Patient: Greater than 30
[2021-01-07] MEDS: methylPREDNISolone SOD SUCCI 40 MG/ML 1 ML VIAL IV SCH ×2 (12:37→20:14)
--- NOTE | 2021-01-07 14:23 | P.CONS ---
History of Present Illness - Reason for Consult Consult date: 01/07/21 - History of Present Illness HISTORY OF PRESENT ILLNESS This is a 70 year old female patient seen today on the MedSurg floor. Patient was apparently sent into the emergency center due to concerns for fatigue and recently was diagnosed with pneumonia 5 days ago. She apparently has a cough. There was concern that she was drowsy and fatigued. Patient appears to have underlying dementia with significant cognitive impairment. Patient is unable to provide any information. She is resting in bed and smiling. She has a baby toy in her arms. She has been afebrile since admission, heart rate in the 60s, blood pressure 131/87, pulse ox 99% on 2 L. No leukocytosis. Hemoglobin at 9.4. Sed rate 63. D-dimer 3.59. Initial potassium 5.3 otherwise electrolytes and renal function are normal. Repeat potassium 4.5. Pro-calcitonin 0.05. C- reactive protein 5.8. Troponin negative. Lactic acid 0.7. Urinalysis negative for infection. Coronavirus PCR not detected. Chest x-ray revealed new pulmonary interstitial edema could be acute heart failure. RDS as possible. CTA of the chest showed no evidence of pulmonary embolism. Bilateral patchy pulmonary infiltrates consistent with pneumonia. There are few bronchial lymph nodes probably inflammatory. Repeat chest x-ray this morning reveals borderline heart size. Similar tortuous ectatic thoracic aorta. Continue bilateral patchy infiltrates. REVIEW OF SYSTEMS Unable to obtain from the patient. PHYSICAL EXAMINATION Gen: This is an obese 70-year-old female. Patient is smiling and appears to be happy. No acute respiratory distress is noted. HEENT: Head is atraumatic, normocephalic. Pupils equal, round. Sclerae is anicteric. NECK: Supple. No JVD. LUNGS: Clear to auscultation. No wheezes or rhonchi. No intercostal retractions. HEART: Regular rate and rhythm. ABDOMEN: Soft. . No masses. No tenderness. EXTREMITIES: No pedal edema. NEUROLOGICAL: Patient is awake, alert. ASSESSMENT Possible pneumonia History of rheumatoid arthritis Intellectual disability PLAN Discontinue vancomycin Continue azithromycin for now, may discontinue tomorrow with normal pro- calcitonin Continue supportive care Further recommendations as patient progresses Thank you kindly for this consultation. The above dictated assessment and findings were discussed with Dr. Trejo. The impression and plan of care have been directed as dictated. Isela Convery nurse practitioner acting as scribe for Dr. Trejo. Past Medical History Past Medical History: Eye Disorder, GERD/Reflux, Hyperlipidemia, Memory Impairment, Pneumonia, Rheumatoid Arthritis (RA) Additional Past Medical History / Comment(s): Profound mentally challenged/cognitive delay-pt is unable to talk but understands alot of what is being said, nonambulatory/wheelchair bound, atrial tachycardia, cardiomegaly, trace mitral and tricuspid regurgitation, lymphedema bilateral legs/feet, dysphagia-pt is to be fed/ground chopped with moisture/supervision, pneumonias/hypoxia, pneumonia with sepsis/septic shock, R eye cataract, h ypothyroidism, spastic tortuous sigmoid colon, mild chronic gastritis, frequent constipation, right knee bursitis, bilateral knee and hip pain, past pressure sore of right heel, iliotibial band syndrome right leg, history of falls, constipation, past R radial fracture, R hip bursitis. History of Any Multi-Drug Resistant Organisms: None Reported Past Surgical History: Joint Replacement, Orthopedic Surgery Additional Past Surgical History / Comment(s): Total R knee then pt fell/joint became infected, D&C, colonoscopy/EGD, pins L hand, L WRIST SCREWS, L THUMB SURGERY, 6 TEETH REMOVED Past Anesthesia/Blood Transfusion Reactions: No Reported Reaction Past Psychological History: Anxiety, Depression Additional Psychological History / Comment(s): Psychotic disease. Pt resides at [facility]. She is profoundly mentally challenged. She is nonambulatory- needs 2 assist to wheelchair, staff feed pt-ground/chopped moistened food-if placed on baby spoon pt can put food in her mouth. She likes her baby doll and coloring and watching funny shows on tv. She is rub her skin and chew her fingers/staff mentions she may need hand coverings. Smoking Status: Never smoker Past Alcohol Use History: Unable to Obtain Past Drug Use History: Unable to Obtain - Past Family History Mother Family Medical History: Coronary Artery Disease (CAD) Additional Family Medical History / Comment(s): Mother is still living. Medications and Allergies Home Medications Medication Instructions Recorded Confirmed Type Omeprazole [PriLOSEC] 20 mg PO BID@0700,1600 01/15/16 01/06/21 History polyethylene glycoL 3350 [Miralax] 1 tsp PO HS@1600 01/15/16 01/06/21 History risperiDONE [RisperDAL] 0.5 mg PO BID@0700,199901/15/16 01/06/21 History Cetirizine HCl [Zyrtec] 10 mg PO HS@199912/06/17 01/06/21 History Linaclotide [Linzess] 145 mcg PO DAILY@1600 12/06/17 01/06/21 History Meloxicam [Mobic] 15 mg PO DAILY@0700 12/06/17 01/06/21 History FLUoxetine HCL [PROzac] 40 mg PO DAILY@0700 10/29/19 01/06/21 History Levothyroxine Sodium [Synthroid] 100 mcg PO AC-BRKFST@0530 10/29/19 01/06/21 History busPIRone HCL 15 mg PO BID@0700,1600 10/29/19 01/06/21 History busPIRone HCL 30 mg PO HS@199910/29/19 01/06/21 History Carbamide Peroxide [Debrox Otic] 3 - 5 drops BOTH EARS DIRECTED 07/09/20 01/06/21 History Docusate Oral Soln [Colace Oral 100 mg PO BID@0700,199907/09/20 01/06/21 History Soln] Famotidine 20 mg PO HS@199907/09/20 01/06/21 History predniSONE 5 mg PO DAILY@0700 07/09/20 01/06/21 History Cranberry 300mg 1 tab PO AC-BID 11/07/20 01/06/21 History Hydroxychloroquine Sulfate 200 mg PO BID@0700,199911/07/20 01/06/21 History [Plaquenil] Azithromycin [Zithromax Z-pack (6 See Taper PO DIRECTED 01/06/21 01/06/21 History tabs)] Cefdinir 300 mg PO BID@0700,199901/06/21 01/06/21 History Allergies Allergy/AdvReac Type Severity Reaction Status Date / Time laundry detergent Allergy Unknown Rash/Hives Uncoded 01/06/21 13:45 Physical Exam Vitals: Vital Signs Temp Pulse Pulse Pulse Resp BP BP 01/07/21 08:08 68 01/07/21 08:00 96.5 F L 66 66 16 01/07/21 03:22 97.5 F L 71 16 01/06/21 20:00 63 18 01/06/21 19:39 97.1 F L 64 17 01/06/21 16:30 97.6 F 63 18 116/69 01/06/21 16:23 18 01/06/21 16:00 01/06/21 15:18 65 16 141/77 01/06/21 13:03 99.6 F 76 24 103/62 BP Pulse Ox 01/07/21 08:08 01/07/21 08:00 131/87 99 01/07/21 03:22 118/76 95 01/06/21 20:00 01/06/21 19:39 122/74 97 01/06/21 16:30 94 L 01/06/21 16:23 01/06/21 16:00 94 L 01/06/21 15:18 94 L 01/06/21 13:03 92 L Intake and Output 01/06/21 01/07/21 01/07/21 22:59 06:59 14:59 Intake Total 240 600 Output Total 375 Balance 240 600 -375 Intake: Intake, IV Titration 600 Amount Sodium Chloride 0.9% 1, 600 000 ml @ 50 mls/hr IV . Q20H [facility] Rx#:[id number] Oral 240 Output: Urine 375 Other: Voiding Method Incontinent External Catheter # Voids 1 Weight 78.925 kg Results CBC & Chem 7: 01/07/21 06:12 01/07/21 06:12 Labs: Abnormal Lab Results - Last 24 Hours (Table) 01/06/21 01/06/21 01/06/21 Range/Units 14:24 14:24 19:48 Hgb 11.0 L (11.4-16.0) gm/dL Hct 33.8 L (34.0-46.0) % ESR (0-30) mm/Hr D-Dimer 3.59 H (<0.60) mg/L FEU Potassium 5.3 H (3.5-5.1) mmol/L C-Reactive Protein (0.0-0.8) mg/dL Urine Protein (Negative) 01/06/21 01/06/21 01/07/21 Range/Units 19:48 19:48 03:00 Hgb (11.4-16.0) gm/dL Hct (34.0-46.0) % ESR 63 H (0-30) mm/Hr D-Dimer (<0.60) mg/L FEU Potassium (3.5-5.1) mmol/L C-Reactive Protein 5.8 H (0.0-0.8) mg/dL Urine Protein Trace H (Negative)
[2021-01-07] MEDS: NON FORMULARY DRUG (Linaclotide [Linzess] 145 MCG Capsule) PO SCH (16:09)
[2021-01-07] MEDS: polyethylene glycoL 3350 17 GM POWD.PACK PO SCH ×2 (16:12→16:14)
[2021-01-07] MEDS: PIPERACILLIN-TAZOBACTAM 3.375 GM in SODIUM CHLORIDE 0.9% 100 ML IVPB SCH ×2 (16:15→23:08)
--- NOTE | 2021-01-07 19:36 | US ---
EXAMINATION TYPE: US venous doppler duplex LE DATE OF EXAM: 01/07/2021 7:21 PM COMPARISON: NONE CLINICAL HISTORY: dvt. R/O DVT. Patient poor historian. SIDE PERFORMED: Bilateral TECHNIQUE: The lower extremity deep venous system is examined utilizing real time linear array sonog ganesh with graded compression, doppler sonography and color-flow sonography. VESSELS IMAGED: Common Femoral Vein Deep Femoral Vein Greater Saphenous Vein * Femoral Vein Popliteal Vein Small Saphenous Vein * Proximal Calf Veins (* superficial vessels) Limited exam due to patient movement. Right Leg: No evidence of DVT in veins imaged at this time from prox calf veins to CFV/GSV. Left Leg: No evidence of DVT in veins imaged at this time from prox calf veins to CFV/GSV. IMPRESSION: No evidence of deep vein thrombosis in both legs.
--- NOTE | 2021-01-07 19:49 | PN ---
PROGRESS NOTE DATE OF SERVICE: 01/07/2021 This 70-year-old woman who was admitted with acute bilateral pneumonia and possible sepsis is being closely monitored. Chest CTA showed bilateral interstitial infiltrates. COVID-19 was negative at this time. The patient is on broad-spectrum IV antibiotics. The cultures are negative so far. Hemoglobin is 9.4. The patient also was seen by Infectious Disease and Pulmonary. Past medical history reviewed. Review of systems could not be taken; the patient is confused and at baseline. CURRENT MEDICATIONS: Reviewed. They include DuoNeb, Zithromax, BuSpar, Pepcid, heparin, Synthroid, Solu- Medrol, levothyroxine, IV Zosyn, Risperdal. PHYSICAL EXAMINATION: Patient is conscious but confused. Pulse 74, blood pressure 130/57, respirations 16, temperature 97.7, pulse ox 94% on 2 L. HEENT: Conjunctivae normal. NECK: No jugular venous distention. CARDIOVASCULAR SYSTEM: S1, S2 muffled. RESPIRATORY SYSTEM: Breath sounds diminished at the bases. A few scattered rhonchi and crackles. ABDOMEN: Soft, non-tender. NERVOUS SYSTEM: No focal deficit. LABS: ESR is 63. D-dimer is 3.59. C-reactive protein is 5.8. NT-proBNP is only 445. ASSESSMENT: 1. Acute bilateral pneumonia, possibly Gram-negative pneumonia, possibly hospital- acquired pneumonia with possible sepsis, present on admission. 2. Change in mental status, acute metabolic encephalopathy secondary to pneumonia. 3. Anemia. 4. History of gastroesophageal reflux disease. 5. Hyperlipidemia. 6. History of memory impairment. 7. History of pneumonia. 8. History of rheumatoid arthritis. 9. Elevated sedimentation rate. 10.Elevated D-dimer at 3.59 without any evidence of pulmonary embolism. 11.Anemia, normocytic. 12.Wheelchair-bound. 13.History of atrial tachycardia. 14.History of dysphagia. 15.History of sepsis. 16.History of hypothyroidism. 17.History of degenerative joint disease. 18.History of depression. 19.History of psychotic disease. 20.History of being mentally challenged. 21.FULL CODE. RECOMMENDATIONS AND DISCUSSION: I recommend to continue current medications, continue with the monitoring, symptomatic treatment. Continue with the bronchodilators. Continue with broad-spectrum IV antibiotics. Otherwise I would also recommend ultrasound of the legs to rule out the possibility of DVT. Prognosis guarded because of multiple complex medical issues. Further recommendations to follow. See orders for further details. Closely follow with multiple consultants. Discussed with staff. MMODL / IJN: [id number] /
[2021-01-07] MEDS: FAMOTIDINE 20 MG TAB PO SCH (20:14)
[2021-01-07] MEDS: busPIRone HCl 10 MG TAB PO SCH (20:14)
[2021-01-07] MEDS: LORATADINE 10 MG TAB PO SCH (20:22)
[2021-01-07] MEDS ORDERED: VANCOMYCIN 1,500 MG in SODIUM CHLORIDE 0.9% 250 ML IVPB SCH (21:00)
[2021-01-08] MEDS: LEVOTHYROXINE 100 MCG TAB PO SCH (05:14)
[2021-01-08] MEDS: IPRATROPIUM-ALBUTEROL 3 ML NEB INHALATION SCH ×3 (08:32→20:12)
[2021-01-08] MEDS: PANTOPRAZOLE 40 MG TABLET PO SCH (08:35)
[2021-01-08] MEDS: FLUoxetine HCL 20 MG CAP PO SCH (08:36)
[2021-01-08] MEDS: busPIRone HCl 5 MG TAB PO SCH ×2 (08:36→16:18)
[2021-01-08] MEDS: DOCUSATE ORAL SOLN 100 MG/10 ML CUP PO SCH ×2 (08:37→19:58)
[2021-01-08] MEDS: risperiDONE 0.5 MG TAB PO SCH ×2 (08:37→19:57)
[2021-01-08] MEDS: HYDROXYCHLOROQUINE SULFATE 200 MG TAB PO SCH ×2 (08:37→19:57)
[2021-01-08] MEDS: AZITHROMYCIN 500 MG TAB PO SCH (08:37)
[2021-01-08] MEDS: PIPERACILLIN-TAZOBACTAM 3.375 GM in SODIUM CHLORIDE 0.9% 100 ML IVPB SCH ×3 (08:37→23:00)
[2021-01-08] MEDS: methylPREDNISolone SOD SUCCI 40 MG/ML 1 ML VIAL IV SCH ×2 (08:37→19:58)
[2021-01-08] MEDS: HEPARIN SODIUM,PORCINE 5,000 UNIT/ML 1 ML VIAL SQ SCH ×3 (08:38→23:02)
[2021-01-08 09:10] LABS: Basophils # (A) 0.01 X 10*3/uL (0.00-0.10); Basophils % (A) 0.1 %; Eosinophils # (A) 0 X 10*3/uL (0.04-0.35); Eosinophils % (A) 0 %; HCT 32.9 % (37.2-46.3); HGB 9.8 g/dL (12.0-15.0); Lymphocytes # (A) 0.67 X 10*3/uL (0.90-5.00); Lymphocytes % (A) 7.9 %; MCH 26.6 pg (27.0-32.0); MCHC 29.8 g/dL (32.0-37.0); MCV 89.4 fL (80.0-97.0); Mean Platelet Volume 10.5 fL (9.5-12.2); Monocytes # (A) 0.36 X 10*3/uL (0.20-1.00); Monocytes % (A) 4.2 %; Neutrophils # (A) 7.43 X 10*3/uL (1.80-7.70); Neutrophils % (A) 87.2 %; Platelet Count 280 X 10*3/uL (140-440); RBC 3.68 X 10*6/uL (4.10-5.20); RDW 14.7 % (11.5-14.5); WBC 8.52 X 10*3/uL (4.50-10.00)
[2021-01-08 09:46] LABS: Anion Gap 9.1 mmol/L (4.00-12.00); Calcium 8.7 mg/dL (8.7-10.3); Carbon Dioxide 25.9 mmol/L (21.6-31.8); Non-African American GFR(CKD) 74.2 (60.0-200.0); Potassium 4.6 mmol/L (3.5-5.5)
--- NOTE | 2021-01-08 11:47 | P.PN ---
Subjective Progress Note Date: 01/08/21 Principal diagnosis: Altered mental status likely related to pneumonia Atypical pneumonia Advanced rheumatoid arthritis Developmental delay Hypothyroidism 01/08/2021, patient seen eval reexamined, patient is afebrile on 2 L oxygen saturation is 95%, bilateral duplex ultrasound of the lower extremity negative for DVT, patient remains on antibiotics breathing treatments and IV steroids covert test is negative but however and telemetry changes and telemetry parameters elevated This patient is a 70-year-old came into the hospital with generalized fatigue slight more drowsiness than baseline data obtained from the chart mainly as patient cannot give a detailed history due to component of developmental delay, it seems like patient has a history of pneumonia about a week ago has been coughing lately has been more short of breath came into the hospital, her past medical history significant for dyslipidemia, dementia exam is disease rheumatoid arthritis, arrival she was noted to have a low-grade temperature, chest x-ray shows bilateral infiltrates with interstitial dominance, CT scan of the chest confirms similar finding however negative for pulmonary embolism, co vert testing is negative however inflammatory parameters are elevated including C-reactive protein, d-dimer, and sed rate, currently patient is being treated with the bronchodilators along with oral Zithromax and continuation of home medications including oral 5 mg prednisone Objective - Vital Signs Vital signs: Vital Signs Temp 97.7 F 01/08/21 08:00 Pulse 66 01/08/21 08:32 Resp 18 01/08/21 08:32 BP 128/85 01/08/21 08:00 Pulse Ox 95 01/08/21 08:32 Intake & Output 01/07/21 01/08/21 01/08/21 18:59 06:59 18:59 Intake Total 480 Output Total 375 600 Balance 105 -600 Intake: Oral 480 Output: Urine 375 600 Other: Voiding Method Incontinent Incontinent Incontinent External Catheter External Catheter External Catheter # Voids 3 - Exam - Constitutional General appearance: average body habitus, disheveled - EENT Eyes: PERRLA Ears: bilateral: normal - Neck Carotids: bilateral: upstroke normal Thyroid: bilateral: normal size - Respiratory Respiratory: bilateral: diminished - Cardiovascular Rhythm: regular Heart sounds: normal: S1, S2 - Musculoskeletal Musculoskeletal: generalized weakness, strength equal bilaterally - Labs CBC & Chem 7: 01/08/21 06:31 01/08/21 06:31 Labs: Abnormal Lab Results - Last 24 Hours (Table) 01/08/21 01/08/21 Range/Units 06:31 06:31 RBC 3.68 L (4.10-5.20) X 10*6/uL Hgb 9.8 L (12.0-15.0) g/dL Hct 32.9 L (37.2-46.3) % MCH 26.6 L (27.0-32.0) pg MCHC 29.8 L (32.0-37.0) g/dL RDW 14.7 H (11.5-14.5) % Immature Gran # 0.05 H (0.00-0.04) X 10*3/uL Lymphocytes # 0.67 L (0.90-5.00) X 10*3/uL Eosinophils # 0 L (0.04-0.35) X 10*3/uL BUN/Creatinine Ratio 25.00 H (12.00-20.00) Ratio Glucose 138 H (70-110) mg/dL Microbiology - Last 24 Hours (Table) 01/06/21 15:04 Blood Culture - Preliminary Blood No Growth after 24 hours Assessment and Plan Assessment: Altered mental status likely related to pneumonia Atypical pneumonia Advanced rheumatoid arthritis Developmental delay Hypothyroidism Plan: Broad-spectrum antibiotics, IV steroids Continue bronchodilator Supplemental oxygen Follow clinical course closely further recommendations pending plan of care as per clinical response of patient Time with Patient: Greater than 30
--- NOTE | 2021-01-08 14:43 | P.PN ---
Subjective Progress Note Date: 01/08/21 HISTORY OF PRESENT ILLNESS This is a 70 year old female patient [facility]. Patient was apparently sent into the emergency center due to concerns for fatigue and recently was diagnosed with pneumonia 5 days ago. She apparently has a cough. There was concern that she was drowsy and fatigued. Patient appears to have underlying dementia with significant cognitive impairment. No leukocytosis. Hemoglobin at 9.4. Sed rate 63. D-dimer 3.59. Initial potassium 5.3 otherwise electrolytes and renal function are normal. Repeat potassium 4.5. Pro- calcitonin 0.05. C-reactive protein 5.8. Troponin negative. Lactic acid 0.7. Urinalysis negative for infection. Coronavirus PCR not detected. Chest x-ray revealed new pulmonary interstitial edema could be acute heart failure. RDS as possible. CTA of the chest showed no evidence of pulmonary embolism. Bilateral patchy pulmonary infiltrates consistent with pneumonia. There are few bronchial lymph nodes probably inflammatory. Repeat chest x-ray this morning reveals borderline heart size. Similar tortuous ectatic thoracic aorta. Continue bilateral patchy infiltrates. Patient is unable to provide any information. She is resting in bed and smiling. She has a baby toy in her arms. She has been afebrile since admission, heart rate in the 60s and 70s, pulse ox 95% on 2 L nasal cannula, pressure 120/85. Patient is found resting in bed. She appears to be in no acute distress. Nursing states that she is not eating very much but no choking episodes. Note the patient has been started on Zosyn and unsure reasoning, will discuss with primary team. Ultrasound of bilateral lower extremity is negative for DVT. Most leukocytosis. Creatinine 0.8. REVIEW OF SYSTEMS Unable to obtain from the patient. PHYSICAL EXAMINATION Gen: This is an obese 70-year-old female. Patient is smiling and appears to be happy. No acute respiratory distress is noted. HEENT: Head is atraumatic, normocephalic. Pupils equal, round. Sclerae is anicteric. NECK: Supple. No JVD. LUNGS: Clear to auscultation. No wheezes or rhonchi. No intercostal retractions. HEART: Regular rate and rhythm. ABDOMEN: Soft. . No masses. No tenderness. EXTREMITIES: No pedal edema. NEUROLOGICAL: Patient is awake, alert. ASSESSMENT Possible pneumonia History of rheumatoid arthritis Intellectual disability PLAN Continue azithromycin for now, may discontinue tomorrow with normal pro- calcitonin She is currently on Zosyn, will discuss with primary team Continue supportive care Further recommendations as patient progresses Thank you kindly for this consultation. The above dictated assessment and findings were discussed with Dr. Trejo. The impression and plan of care have been directed as dictated. Isela Escalante nurse practitioner acting as scribe for Dr. Trejo. Objective - Vital Signs Vital signs: Vital Signs Temp 97.7 F 01/08/21 08:00 Pulse 66 01/08/21 08:32 Resp 18 01/08/21 08:32 BP 128/85 01/08/21 08:00 Pulse Ox 95 01/08/21 08:32 Intake & Output 01/07/21 01/08/21 01/08/21 18:59 06:59 18:59 Intake Total 480 Output Total 375 600 Balance 105 -600 Intake: Oral 480 Output: Urine 375 600 Other: Voiding Method Incontinent Incontinent Incontinent External Catheter External Catheter External Catheter # Voids 3 - Labs CBC & Chem 7: 01/08/21 06:31 01/08/21 06:31 Labs: Abnormal Lab Results - Last 24 Hours (Table) 01/07/21 01/08/21 01/08/21 Range/Units 06:12 06:31 06:31 RBC 3.68 L (4.10-5.20) X 10*6/uL Hgb 9.8 L (12.0-15.0) g/dL Hct 32.9 L (37.2-46.3) % MCH 26.6 L (27.0-32.0) pg MCHC 29.8 L (32.0-37.0) g/dL RDW 14.7 H (11.5-14.5) % Immature Gran # 0.05 H (0.00-0.04) X 10*3/uL Lymphocytes # 0.67 L (0.90-5.00) X 10*3/uL Eosinophils # 0 L (0.04-0.35) X 10*3/uL BUN/Creatinine Ratio 25.00 H (12.00-20.00) Ratio Glucose 138 H (70-110) mg/dL Calcium 8.6 L (8.7-10.3) mg/dL Microbiology - Last 24 Hours (Table) 01/06/21 15:04 Blood Culture - Preliminary Blood No Growth after 24 hours
--- NOTE | 2021-01-08 16:06 | XR ---
EXAMINATION TYPE: XR chest 1V portable DATE OF EXAM: 01/08/2021 Comparison: 01/06/2021 and 01/07/2021 Clinical History: 70-year-old female pneumonia FINDINGS: Heart upper limits of normal in size. Stable right paratracheal and right hilar prominence. When revi vergara the patient's recent 01/07/2021 CT, this relates to superimposition shadow of hilar and mediastin al structures. Patchy interstitial opacities show some improvement as compared to 01/07/2021. Very low lung volumes and crowded vascular markings. No pleural effusion. IMPRESSION: 1. Hypoventilatory changes. 2. Scattered interstitial infiltrates show some improvement from 01/07/2021.
[2021-01-08] MEDS: NON FORMULARY DRUG (Linaclotide [Linzess] 145 MCG Capsule) PO SCH (16:18)
--- NOTE | 2021-01-08 16:27 | PN ---
PROGRESS NOTE DATE OF SERVICE: 01/08/2021 This 70-year-old woman who was admitted with acute bilateral pneumonia and possible hospital-acquired pneumonia is being closely monitored at this time. The venous Doppler study which was done yesterday showed no evidence of DVT. No chest pain. No palpitations. No fever. PHYSICAL EXAMINATION: The patient is stuporous. Pulse 72, blood pressure 128/85, respiration 18, temperature 97.6, pulse ox 96% on 2 L. HEENT: Conjunctivae normal. NECK: No jugular venous distention. CARDIOVASCULAR SYSTEM: S1, S2 muffled. RESPIRATORY SYSTEM: Breath sounds diminished at the bases. Bilateral scattered rhonchi and crackles. ABDOMEN: Soft. NERVOUS SYSTEM: No focal deficit. LABS: WBC 8.3. Hemoglobin is 9.8. ASSESSMENT: 1. Acute bilateral pneumonia, possibly Gram-negative pneumonia, possibly hospital- acquired pneumonia with possible sepsis, present on admission. 2. Change in mental status, acute metabolic encephalopathy secondary to pneumonia. 3. Anemia. 4. History of gastroesophageal reflux disease. 5. Hyperlipidemia. 6. History of memory impairment. 7. History of pneumonia. 8. History of rheumatoid arthritis. 9. Elevated sedimentation rate. 10.Elevated D-dimer of 3.59 without any evidence of pulmonary embolism or deep venous thrombosis. 11.Anemia, normocytic. 12.Wheelchair-bound. 13.History of atrial tachycardia. 14.History of dysphagia. 15.History of sepsis. 16.History of hypothyroidism. 17.History of degenerative joint disease. 18.History of depression. 19.History of psychiatric disorder. 20.History of mentally challenged. 21.FULL CODE. RECOMMENDATIONS AND DISCUSSION: In this 70-year-old woman who presented with multiple medical issues and bilateral pneumonia, at this time I recommend to continue the antibiotics, continue the rest of the medications. Continue with symptomatic treatment. COVID-19 is negative. I would also recommend a follow-up chest x-ray. Closely follow with multiple consultants. Guarded prognosis. Further recommendations to follow. MMODL / IJN: [id number] /
[2021-01-08] MEDS: FAMOTIDINE 20 MG TAB PO SCH (19:57)
[2021-01-08] MEDS: LORATADINE 10 MG TAB PO SCH (19:57)
[2021-01-08] MEDS: busPIRone HCl 10 MG TAB PO SCH (19:58)
[2021-01-09] MEDS: LEVOTHYROXINE 100 MCG TAB PO SCH (04:39)
[2021-01-09 07:57] VITALS: RESP 18
[2021-01-09] MEDS: IPRATROPIUM-ALBUTEROL 3 ML NEB INHALATION SCH ×2 (08:08→11:09)
[2021-01-09] MEDS: methylPREDNISolone SOD SUCCI 40 MG/ML 1 ML VIAL IV SCH (08:43)
[2021-01-09] MEDS: HEPARIN SODIUM,PORCINE 5,000 UNIT/ML 1 ML VIAL SQ SCH (08:44)
[2021-01-09] MEDS: AZITHROMYCIN 500 MG TAB PO SCH (08:44)
[2021-01-09] MEDS: busPIRone HCl 5 MG TAB PO SCH (08:44)
[2021-01-09] MEDS: risperiDONE 0.5 MG TAB PO SCH (08:44)
[2021-01-09] MEDS: FLUoxetine HCL 20 MG CAP PO SCH (08:44)
[2021-01-09] MEDS: PANTOPRAZOLE 40 MG TABLET PO SCH (08:44)
[2021-01-09] MEDS: DOCUSATE ORAL SOLN 100 MG/10 ML CUP PO SCH (08:44)
[2021-01-09] MEDS: HYDROXYCHLOROQUINE SULFATE 200 MG TAB PO SCH (08:44)
[2021-01-09] MEDS: PIPERACILLIN-TAZOBACTAM 3.375 GM in SODIUM CHLORIDE 0.9% 100 ML IVPB SCH (08:44)
[2021-01-09 10:35] LABS: Basophils # (A) 0.01 X 10*3/uL (0.00-0.10); Basophils % (A) 0.1 %; Eosinophils # (A) 0 X 10*3/uL (0.04-0.35); Eosinophils % (A) 0 %; HCT 33.7 % (37.2-46.3); HGB 10.2 g/dL (12.0-15.0); Lymphocytes # (A) 0.82 X 10*3/uL (0.90-5.00); Lymphocytes % (A) 8.4 %; MCHC 30.3 g/dL (32.0-37.0); MCV 89.2 fL (80.0-97.0); Mean Platelet Volume 10.7 fL (9.5-12.2); Monocytes # (A) 0.87 X 10*3/uL (0.20-1.00); Monocytes % (A) 8.9 %; Neutrophils # (A) 8.02 X 10*3/uL (1.80-7.70); Neutrophils % (A) 81.9 %; Platelet Count 317 X 10*3/uL (140-440); RBC 3.78 X 10*6/uL (4.10-5.20); RDW 14.9 % (11.5-14.5); WBC 9.79 X 10*3/uL (4.50-10.00)
--- NOTE | 2021-01-09 10:39 | P.PN ---
Subjective Progress Note Date: 01/09/21 Principal diagnosis: Altered mental status likely related to pneumonia Atypical pneumonia Advanced rheumatoid arthritis Developmental delay Hypothyroidism 01/09/2021, he shouldn't seen evaluated examined labs reviewed medications reviewed, oxygen saturation 97% hemodynamic status stable, she remains on broad- spectrum antibiotics along with IV steroids tolerating well, last chest x-ray performed on January 08 compared with the admit x-ray slight improvement in infiltrates noted 01/08/2021, patient seen eval reexamined, patient is afebrile on 2 L oxygen saturation is 95%, bilateral duplex ultrasound of the lower extremity negative for DVT, patient remains on antibiotics breathing treatments and IV steroids covert test is negative but however and telemetry changes and telemetry parameters elevated This patient is a 70-year-old came into the hospital with generalized fatigue slight more drowsiness than baseline data obtained from the chart mainly as patient cannot give a detailed history due to component of developmental delay, it seems like patient has a history of pneumonia about a week ago has been coughing lately has been more short of breath came into the hospital, her past medical history significant for dyslipidemia, dementia exam is disease rheumatoid arthritis, arrival she was noted to have a low-grade temperature, chest x-ray shows bilateral infiltrates with interstitial dominance, CT scan of the chest confirms similar finding however negative for pulmonary embolism, covert testing is negative however inflammatory parameters are elevated includ ing C-reactive protein, d-dimer, and sed rate, currently patient is being treated with the bronchodilators along with oral Zithromax and continuation of home medications including oral 5 mg prednisone Objective - Vital Signs Vital signs: Vital Signs Temp 97.7 F 01/09/21 07:03 Pulse 68 01/09/21 08:21 Resp 18 01/09/21 07:03 BP 139/82 01/09/21 07:03 Pulse Ox 97 01/09/21 07:03 Intake & Output 01/08/21 01/09/21 01/09/21 18:59 06:59 18:59 Output Total 1000 350 Balance -1000 -350 Output: Urine 1000 350 Other: Voiding Method Incontinent Incontinent External Catheter External Catheter - Exam - Constitutional General appearance: average body habitus, disheveled - EENT Eyes: PERRLA Ears: bilateral: normal - Neck Carotids: bilateral: upstroke normal Thyroid: bilateral: normal size - Respiratory Respiratory: bilateral: diminished - Cardiovascular Rhythm: regular Heart sounds: normal: S1, S2 - Musculoskeletal Musculoskeletal: generalized weakness, strength equal bilaterally - Labs CBC & Chem 7: 01/09/21 07:35 01/08/21 06:31 Labs: Abnormal Lab Results - Last 24 Hours (Table) 01/09/21 Range/Units 07:35 RBC 3.78 L (4.10-5.20) X 10*6/uL Hgb 10.2 L (12.0-15.0) g/dL Hct 33.7 L (37.2-46.3) % MCHC 30.3 L (32.0-37.0) g/dL RDW 14.9 H (11.5-14.5) % Immature Gran # 0.07 H (0.00-0.04) X 10*3/uL Neutrophils # 8.02 H (1.80-7.70) X 10*3/uL Lymphocytes # 0.82 L (0.90-5.00) X 10*3/uL Eosinophils # 0 L (0.04-0.35) X 10*3/uL Microbiology - Last 24 Hours (Table) 01/06/21 15:04 Blood Culture - Preliminary Blood No Growth after 48 hours Assessment and Plan Assessment: Altered mental status likely related to pneumonia Atypical pneumonia Advanced rheumatoid arthritis Developmental delay Hypothyroidism Plan: Broad-spectrum antibiotics, IV steroids Continue bronchodilator Supplemental oxygen Follow clinical course closely further recommendations pending plan of care as per clinical response of patient Time with Patient: Greater than 30
[2021-01-09 10:50] LABS: Anion Gap 7.7 mmol/L (4.00-12.00); BUN/Creat Ratio 28.75 Ratio (12.00-20.00); Carbon Dioxide 27.3 mmol/L (21.6-31.8); Non-African American GFR(CKD) 74.2 (60.0-200.0); Potassium 4.5 mmol/L (3.5-5.5)
--- NOTE | 2021-01-09 14:12 | PN ---
PROGRESS NOTE DATE OF SERVICE: 01/09/2021 REASON FOR FOLLOWUP: Possible aspiration pneumonia. INTERVAL HISTORY: The patient is currently afebrile. Patient is breathing comfortably on room air. The patient is pleasantly confused. Unable to provide any history. No vomiting, diarrhea or any other changes reported by the nursing staff. PHYSICAL EXAMINATION: Blood pressure is 139/82 with a pulse of 67, temperature 97.7. She is 97% on 2 L nasal cannula. General description is an elderly female lying in bed in no distress. RESPIRATORY SYSTEM: Unlabored breathing with decreased intensity of breath sounds. No wheeze. HEART: S1, S2. Regular rate and rhythm. ABDOMEN: Soft, no tenderness. LABS: Hemoglobin is 10.2, white count 9.79, BUN of 23, creatinine 0.8. DIAGNOSTIC IMPRESSION AND PLAN: Patient admitted to the hospital with shortness of breath, concern for possible aspiration pneumonitis. On Zosyn to finish therapy with short course of oral Augmentin. Discussed with the admitting team. MMODL / IJN: [id number] /
[2021-01-09 14:18] VITALS: BP 112/69; PULSE 80; TEMP 98.4
--- NOTE | 2021-01-10 09:10 | P.DS ---
Providers Date of admission: 01/06/21 14:50 Expected date of discharge: 01/09/21 Attending physician: Nikunj Dc MD Consults: 01/06/21 20:09 Consult Physician Routine Consulting Provider: Fred Canales Consult Reason/Comments: pneumonia Do you want consulting provider notified?: Yes 01/07/21 10:12 Consult Physician Routine Consulting Provider: Radha Trejo Consult Reason/Comments: pneumonia Do you want consulting provider notified?: Yes Primary care physician: Alcides [facility] Course: Final diagnosis Acute bilateral pneumonia, possibly gram-negative pneumonia, possibly hospital- acquired pneumonia with possible sepsis, present on admission Change in mental status, acute metabolic encephalopathy secondary to pneumonia Anemia History of gastroesophageal reflux disease Hyperlipidemia History of memory impairment History of pneumonia History of rheumatoid arthritis Elevated sedimentation rate elevated d-dimer of 3.59 without any evidence of pulmonary embolism or deep vein thrombosis Anemia, normocytic wheelchair-bound history of atrial tachycardia history of dysphagia History of sepsis history of hypothyroidism history of degenerative joint disease history of depression History of psychiatric disorder history of mentally challenged Full code Discharge disposition Patient is being discharged in a stable condition with guarded prognosis to [facility] where she is a resident. Patient will follow-up with Leona CIFUENTES in the outpatient setting upon discharge. Patient is also instructed to follow-up with pulmonary Dr. Canales in the outpatient setting. She will continue on oral antibiotics in the form of Augmentin twice daily for the next 5 days to complete the course. Patient also completed a prednisone taper prior to resuming her daily dose of 5 mg. Total time taken is greater than 35 minutes. Hospital course This is a 70-year-old female who was recently admitted with acute bilateral pneumonia and possible hospital-acquired pneumonia and was being closely monitored. Home Sherif Dr. Canales along with infectious disease following closely. Patient was maintained on IV antibiotic therapy and we'll transition to oral antibiotics in the form of Augmentin twice daily for the next 5 days to complete the course. Patient was also maintained on IV steroids and will continue on a prednisone taper. She is to hold her 5 mg dose of prednisone until the taper has been completed. She instructed to follow-up with pulmonary in the outpatient setting as well. Patient was provided a nebulizer for continue DuoNeb treatments for pneumonia. She is also to maintain a ground dysphagia pured diet with thickened liquids and one-to-one supervision and head of the bed elevated 30-45 for strict aspiration precautions. Currently no reports of chest pain, shortness of breath, or palpitations. Patient is afebrile. No reports of nausea or vomiting and patient is tolerating diet. Patient will be returning to her [facility] today. She does have 24/7 care. On exam vital signs are stable. Cardio S1, S2 are muffled. Respiratory system shows diminished breath sounds at the bases with no wheezing or rhonchi noted. Abdomen is soft and nontender. Nervous system shows no focal deficits. Please refer to medication reconciliation sheet for a list of medications. Patient Condition at Discharge: Stable Plan - Discharge Summary Discharge Rx Participant: No New Discharge Prescriptions: New Ipratropium-Albuterol Nebulize [Duoneb 0.5 mg-3 mg/3 ml Soln] 3 ml INHALATION RT-TID #120 ml Ipratropium-Albuterol Nebulize [Duoneb 0.5 mg-3 mg/3 ml Soln] 3 ml INHALATION RT-TID PRN ml PRN Reason: Shortness Of Breath Or Wheezing predniSONE 10 mg PO DIRECTED #30 tab Amoxic-Pot Clav 875-125Mg [Augmentin 875-125] 1 tab PO Q12HR 5 Days #10 tab Ipratropium-Albuterol Nebulize [Duoneb 0.5 mg-3 mg/3 ml Soln] 3 ml INHALATION QID #120 neb Continue polyethylene glycoL 3350 [Miralax] 1 tsp PO HS@1600 risperiDONE [RisperDAL] 0.5 mg PO BID@0700,2000 Omeprazole [PriLOSEC] 20 mg PO BID@0700,1600 Meloxicam [Mobic] 15 mg PO DAILY@0700 Cetirizine HCl [Zyrtec] 10 mg PO HS@2000 Linaclotide [Linzess] 145 mcg PO DAILY@1600 Levothyroxine Sodium [Synthroid] 100 mcg PO AC-BRKFST@0530 FLUoxetine HCL [PROzac] 40 mg PO DAILY@0700 busPIRone HCL 30 mg PO HS@2000 busPIRone HCL 15 mg PO BID@0700,1600 Famotidine 20 mg PO HS@2000 Docusate Oral Soln [Colace Oral Soln] 100 mg PO BID@0700,2000 Carbamide Peroxide [Debrox Otic] 3 - 5 drops BOTH EARS DIRECTED Cranberry 300mg 1 tab PO AC-BID Hydroxychloroquine Sulfate [Plaquenil] 200 mg PO BID@699,1999 Cefdinir 300 mg PO BID@699,1999 Azithromycin [Zithromax Z-pack (6 tabs)] See Taper PO DIRECTED predniSONE 5 mg PO DAILY@0700 #0 Discharge Medication List Omeprazole [PriLOSEC] 20 mg PO BID@0700,1600 01/15/16 [History] polyethylene glycoL 3350 [Miralax] 1 tsp PO HS@159901/15/16 [History] risperiDONE [RisperDAL] 0.5 mg PO BID@07,199901/15/16 [History] Cetirizine HCl [Zyrtec] 10 mg PO HS@199912/06/17 [History] Linaclotide [Linzess] 145 mcg PO DAILY@159912/06/17 [History] Meloxicam [Mobic] 15 mg PO DAILY@0700 12/06/17 [History] FLUoxetine HCL [PROzac] 40 mg PO DAILY@0710/29/19 [History] Levothyroxine Sodium [Synthroid] 100 mcg PO AC-BRKFST@0530 10/29/19 [History] busPIRone HCL 15 mg PO BID@0700,159910/29/19 [History] busPIRone HCL 30 mg PO HS@199910/29/19 [History] Carbamide Peroxide [Debrox Otic] 3 - 5 drops BOTH EARS DIRECTED 07/09/20 [History] Docusate Oral Soln [Colace Oral Soln] 100 mg PO BID@0700,199907/09/20 [History] Famotidine 20 mg PO HS@199907/09/20 [History] Cranberry 300mg 1 tab PO AC-BID 11/07/20 [History] Hydroxychloroquine Sulfate [Plaquenil] 200 mg PO BID@699,199911/07/20 [History] Azithromycin [Zithromax Z-pack (6 tabs)] See Taper PO DIRECTED 01/06/21 [History] Cefdinir 300 mg PO BID@0700,199901/06/21 [History] Amoxic-Pot Clav 875-125Mg [Augmentin 875-125] 1 tab PO Q12HR 5 Days #10 tab 01/09/21 [Rx] Ipratropium-Albuterol Nebulize [Duoneb 0.5 mg-3 mg/3 ml Soln] 3 ml INHALATION QID #120 neb 01/09/21 [Rx] Ipratropium-Albuterol Nebulize [Duoneb 0.5 mg-3 mg/3 ml Soln] 3 ml INHALATION RT-TID #120 ml 01/09/21 [Rx] Ipratropium-Albuterol Nebulize [Duoneb 0.5 mg-3 mg/3 ml Soln] 3 ml INHALATION RT-TID PRN ml 01/09/21 [Rx] predniSONE 5 mg PO DAILY@0700 #0 01/09/21 [Rx] predniSONE 10 mg PO DIRECTED #30 tab 01/09/21 [Rx] Follow up Appointment(s)/Referral(s): [facility] [NON-STAFF] - As Needed (Nebulizer) Louisa Abarca PAC [REFERRING] - 01/16/21 3:00 pm Fred Canales MD [STAFF PHYSICIAN] - 02/01/21 12:30 pm Patient Instructions/Handouts: Community Acquired Pneumonia (DC) Activity/Diet/Wound Care/Special Instructions: Duoneb prescriptions called to [facility] in [place] #[phone]. puree diet, one on one feeding, nectar thick liquids Strict aspiration precautions with supervision with meals, head of the bed elevated 30-45 at all times Follow-up with primary care provider upon discharge Continue with antibiotics for 5 days and then may discontinue Continue breathing inhalational treatments as ordered Continue prednisone taper and hold 5mg until finished with taper Message left with Jessica at [facility]'s office regarding D/C, meds, nebulizer and follow up appts. 2pm vitals 98.4 temp, 80 pulse, 18 resp, 112/69 BP, 93% 02 saturation on room air Discharge Disposition: TRANSFER TO SNF/ECF
[2021-01-13] MEDS ORDERED: CARBAMIDE PEROXIDE 6.5% DROPS 15 ML BTL BOTH EARS SCH (09:00)
== END 2021-01-09 16:02 | DRG 871 ==
LOC: EC 13:00 → EEVIPCON 13:00 → 4SSUR 14:50
PROVIDERS: ADMIT Internal Medicine; ATTEND Internal Medicine
DX: A41.9 Sepsis, unspecified organism (principal); G93.41 Metabolic encephalopathy; J15.6 Pneumonia due to other Gram-negative bacteria; K21.9 Gastro-esophageal reflux disease without esophagitis; E78.5 Hyperlipidemia, unspecified; M06.9 Rheumatoid arthritis, unspecified; Z20.822 Contact with and (suspected) exposure to COVID-19; I25.10 Atherosclerotic heart disease of native coronary artery without angina pectoris; D64.9 Anemia, unspecified; Z99.3 Dependence on wheelchair; R62.50 Unspecified lack of expected normal physiological development in childhood; E03.9 Hypothyroidism, unspecified
CPT/HCPCS: 36415; 71045; 71046; 71275; 80048; 80053; 81003; 82728; 83605; 83735; 83880; 84145; 84484; 85025; 85379; 85610; 85652; 86140; 87040; 87635; 93005; 93970; 94640; 94760